=== PATIENT | female | born 1945 | race Caucasian/White ===

== ENCOUNTER → 2018-03-04 10:20 | Outpatient (CLI) | payer OTHER, SELFPAY ==
--- NOTE | 2018-03-04 | BRBX_PTH ---
PATIENT: JLUIS MCCLOUD LOC: [facility] U#:[id number] AGE/SX: 79/F ROOM: RE03/04/[address]: Dr. Jose Pierce MD : 1945 BED: DIS: SPEC #: [id number] RECD: 03/04/18 13:35 STATUS: DA MARGARITA #: [id number] MEG: 03/04/18 00:[address]: Jose Pierce DEPT: SURGICAL PATHOLOGY RECD BY: Teo Braun ENTERED: 03/04/18 13:35 SP TYPE: BREAST BX OTHR DR: Dr. 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 Atypical lobular hyperplasia. Focal microcalcifications. See comment. REVA:clifton 03/05/18 COMMENT The tumor predominantly consists of lobular carcinoma in situ. Focal ductal carcinoma in situ is also noted (<5% of the tumor) nuclear grade 3. Immunohistochemistry ([id number]) supports the above diagnosis. ER/TN/Cfe8hys studies are being performed on sections of tumor and the results from this study will be reported separately ([id number]). Case has been reviewed in consultation with Dr. Daly who concurs with the above diagnosis. IDC:AM MICROSCOPIC DESCRIPTION Slides are reviewed. GROSS DESCRIPTION Received is one container labeled with the patient's name and not further designated. The specimen consists of multiple elongated fragments of galvan-yellow fibroadipose tissue that in aggregate measure 5 x 3 x 0.3 cm. The entire specimen is submitted in two cassettes. / REVA:clifton 03/04/18 TC:0 [facility]: [id number]
--- NOTE | 2018-03-04 | IMM_PTH ---
PATIENT: JLUIS MCCLOUD LOC: [facility] U#:[id number] AGE/SX: 79/F ROOM: RE03/04/[address]: Dr. Jose Pierce MD : 1945 BED: DIS: SPEC #: [id number] RECD: 03/05/18 13:09 STATUS: DA REQ #: [id number] MEG: 03/04/18 00:[address]: Jose Pierce DEPT: IMMUNOHISTOCHEMISTRY RECD BY: Chichi Rodriguez ENTERED: 03/05/18 13:12 SP TYPE: IMMUNO OTHR DR: Dr. Mk Becerril DO Tissues: Right breast, NOS Procedures: CK8 (initial) CALPONIN-1 (add) CK8 (add) E-CAD (add) ER (add) HER2 JASBIR (add) MS (add) P40 (add) PHYSICIAN & INSTITUTION [place] [id number] SPECIMEN INFORMATION: Tissue Source: Right breast, microcalcifications 12 o'clock middle depth Clinical Info: Right breast, microcalcifications 12 o'clock middle depth Specimen Number: [id number] #1 & 2 CPT code: 59541, 60828 x7, 48737 x3 METHODOLOGY: Deparaffinized sections of prefer/formalin-fixed tissue or PAP/DQ stained slides are incubated with monoclonal/polyclonal antibodies/oligonucleotide probes. Localization is made via biotin free immunoperoxidase method. Appropriate controls are performed and reacted as expected. Results on target cell population are indicated in the following table: RESULTS: ANTIBODY / CLONE RESULT Block 1 P40 (BC28) positive Calponin-1 (WO458V) positive CK8 (03tydhM94) positive E-Cad (ECH-6) negative * * focally positive in ductal carcinoma in situ. MORPHOMETRIC ANALYSIS ER (clone 6F11) 0% MS (clone 16/1E2) 0% Her-2Neu (clone CB11) positive (3+) The prognostic test for HER2 is performed on formalin-fixed paraffin embedded tissue. A 3+ (positive) staining pattern is defined as intense, homogeneous, complete, circumferential membranous staining in >10% of contiguous tumor cells. A similar weak (2+) staining pattern is interpreted as equivocal. GURDEEP follow-up testing is recommended for all equivocal cases. Positivity/negativity for ER/MS is reported if > or < 1% of the tumor cells are immuno- reactive, respectively. The ASCO/CAP criteria is used for scoring. Reference: Journal of Clinical Oncology, 2013; 31:0793-1499 & 2010; 16:7451-2980. Duration of fixation: 8 Hrs; Sample Adequate: Yes. These assays have not been validated on decalcified tissues. Results should be interpreted with caution given the likelihood of false negativity on decalcified specimens. Block 2 P40 (BC28) positive Calponin-1 (QF450C) positive CK8 (72bqnwP90) positive E-Cad (ECH-6) negative These tests were developed and their performance characteristics determined by [facility]. They may not have been cleared or approved by the U.S. Food and Drug Administration. The FDA has determined that such clearance or approval is not necessary. INTERPRETATION: Right breast, microcalcifications 12 o'clock middle depth, stereotactic core biopsy: Lobular carcinoma in situ (predominant tumor). Atypical lobular hyperplasia. Focal ductal carcinoma in situ. This case has been reviewed in consultation with Dr. Daly who concurs with the above diagnosis. SJ:clifton 03/06/18
--- NOTE | 2018-03-05 18:53 | OP.PCM_ITS ---
Report of Operation Date of Procedure: 03/04/18 Pre-Operative Diagnosis: right breast microcalcifications Post-Operative Diagnosis: right breast microcalcifications Surgery/Procedure Performed:: right breast stereotactic biopsy with specimen radiograph and gel marker placement clinical molecular geneticist: None Type of Anesthesia:: Local Specimen's removed: right breast tissue Description of Procedure: The patient was brought to the stereotactic suite and informed of the plan course of events. The right breast was positioned in the CC approach on the [place] stereotactic table. Mammographic image demonstrated the area of abnormality to be located in the center of the radiograph. Stereotactic images were then obtained which demonstrated good positioning of the abnormality for biopsy with good stroke iris parameters. The breast was cleaned with Betadine area did one percent lidocaine was used to anesthetize the skin and a small stab incision made. An 8-gauge mammotome needle was placed into the pre-fire position. Stereotactic images demonstrated good positioning around the planned biopsy site. Local anesthetic injected deeply in the breast. The needle was d eployed. Post deployment images demonstrated good positioning of the planned biopsy site. Multiple vacuum-assisted samples were obtained and gdibdr-nzx-qjvab fashion. Specimen radiograph demonstrated micro-calcifications in the sample. A gel marker clip was deployed. Post biopsy images demonstrated good position of the clip relative the biopsy cavity. The breast was removed from compression. Steri-Strips and a dressing applied. Post procedure mammogram images were obtained.
== END ==
PROVIDERS: PCP Student in an Organized Health Care Education/Training Program; Referring Provider Surgery; Visit Provider Surgery
DX: D05.01 Lobular carcinoma in situ of right breast (principal); D05.11 Intraductal carcinoma in situ of right breast; N60.91 Unspecified benign mammary dysplasia of right breast; E78.00 Pure hypercholesterolemia, unspecified; E03.9 Hypothyroidism, unspecified; E55.9 Vitamin D deficiency, unspecified; Z85.3 Personal history of malignant neoplasm of breast; Z79.899 Other long term (current) drug therapy; Z87.891 Personal history of nicotine dependence
CPT/HCPCS: 19081; 88305; 88341; 88342; J7050

== ENCOUNTER → 2018-03-06 12:33 | Outpatient (CLI) | payer OTHER, SELFPAY ==
--- OUTSIDE RECORDS SUMMARY | 2018-05-11 05:06 | XMS RPT_ITS ---
:1945 Author Organization OH[facility] Care Team Providers Name Role Phone MK [facility]SE Referring Unavailable MK HOUSE Attending Unavailable MEI WYNN (PAWN SHOP KEEPER) Referring Unavailable FREDRICK EDWARDS Attending Unavailable MEI WYNN (PAWN SHOP KEEPER) Referring Unavailable JOSE BOB Attending Unavailable SONYA VARGAS (DARWIN) Attending Unavailable JOSE BOB Referring Unavailable Jose Bob Attending Unavailable Jose Bob Referring Unavailable Lev Chan Attending Unavailable Lev Chan Referring Unavailable [facility] Unavailable PROBLEMS PROBLEMS DATE TYPE CONDITION / CODE ATTENDING STATUS SOURCE 02/04/2018 Active Other abnormal and NA Active [facility] inconclusive [place] findings on Repository diagnostic imaging of breast / R92.8(ICD-10) 01/28/2018 Active Unknown / FREDRICK EDWARDS Active [facility] UNK(Unknown) [place] Repository 01/28/2018 Active Encounter for NA Active [facility] screening [place] mammogram for Repository malignant neoplasm of breast / Z12.31(ICD-10) 03/09/2013 Active Vitamin D Active [facility] deficiency, [place] unspecified / Repository E55.9(ICD-10) 01/01/2018 Active Other jail NA Active [facility] (current) drug [place] therapy / Repository Z79.899(ICD-10) PROCEDURES PROCEDURES No Procedure Records FoundRESULTS RESULTS PROGRESS Observed: 03/14/2018 Status: COMPLETED Source: [place] 7:06 PM [facility] REPOSITORY HNO ID: [id number] Author: Sonya Vargas (Pa) Service: (none) Author Type: Physician Glass Smoother Type: Progress Notes Filed: 03/14/2018 7:13 PM Note Text: FOLLOW UP VISIT - POST STEREOTACTIC BIOPSY - POSITIVE BIOPSY - LCIS NAME: Bhakti Mccloud [facility] NO.: [id number] DATE OF SERVICE: 03/13/2018 : 1945 REFERRING PHYSICIAN: [facility], Bhakti is a patient I am following with Dr. Bob for abnormal breast imaging. Dr. Bob performed a right side stereotactic biopsy for her abnormal mammogram on 03/04/18. 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 Atypical lobular hyperplasia. Focal microcalcifications. See comment. SJ:rg 03/05/18 COMMENT The tumor predominantly consists of lobular carcinoma in situ. Focal ductal carcinoma in situ is also noted (<5% of the tumor) nuclear grade 3. SPECIMEN INFORMATION: Tissue Source: Right breast, microcalcifications 12 o?clock middle depth Clinical Info: Right breast, microcalcifications 12 o?clock middle depth Specimen Number: [id number] #1 AND 2 CPT code: 57307, 14125 x7, 98866 x3 METHODOLOGY: Deparaffinized sections of prefer/formalin-fixed tissue or PAP/DQ stained slides are incubated with monoclonal/polyclonal antibodies/oligonucleotide probes. Localization is made via biotin free immunoperoxidase method. Appropriate controls are performed and reacted as expected. Results on target cell population are indicated in the following table: RESULTS: ANTIBODY / CLONE RESULT Block 1 P40 (BC28) positive Calponin-1 (OP454S) positive CK8 (73jcknC02) positive E-Cad (ECH-6) negative * * focally positive in ductal carcinoma in situ. MORPHOMETRIC ANALYSIS ER (clone 6F11) 0% WV (clone 16/1E2) 0% Her-2Neu (clone CB11) positive (3+) The patient notes minimal bruising since the procedure. VITALS: There were no vitals taken for this visit. On examination, the Right breast biopsy site is clean, dry, and intact. There is mild bruising of the site. Assessment IMPRESSION: status post stereotactic biopsy for Right breast LCIS. PLAN: If Bhakti notes any problems, she should contact me immediately. We extensively discussed her diagnosis of lobular carcinoma in situ. She was able to ask questions and those questions were answered. The patient will also follow up next week while Dr. Bob is in office for further discussion of pathology and surgical treatment options. Patient verbalized understanding of all above and agreed with the plan Diagnoses: (D05.01) Lobular carcinoma in situ of right breast (primary encounter diagnosis) I spent 20 minutes in the visit, with more than 50% of the total ixcc-ch-oueb time of the visit in counseling / coordination of care. Sonya Vargas PA-C CNOV Observed: 03/13/2018 Status: COMPLETED Source: [place] 2:00 PM [place] REPOSIT[facility] Office Visit (GENSWS) BHAKTI MCCLOUD ([id number]) 1945 F Date Time Provider Department 03/13/18 2:00 PM SONYA VARGAS (PA) During your visit today, we recorded the following information about you: Sonya Vargas PA-C 03/13/2018 2:18 PM Signed -Follow up with Dr. Bob next week Sonya Vargas PA-C 03/14/2018 7:13 PM Signed FOLLOW UP VISIT - POST STEREOTACTIC BIOPSY - POSITIVE BIOPSY - LCIS NAME: Bhakti Nannette Mccloud [facility] NO.: [id number] DATE OF SERVICE: 03/13/2018 : 1945 REFERRING PHYSICIAN: [facility] DO Bhakti is a patient I am following with Dr. Bob for abnormal breast imaging. Dr. Bob performed a right side stereotactic biopsy for her abnormal mammogram on 03/04/18. 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 Atypical lobular hyperplasia. Focal microcalcifications. See comment. SJ:clifton 03/05/18 COMMENT The tumor predominantly consists of lobular carcinoma in situ. Focal ductal carcinoma in situ is also noted (<5% of the tumor) nuclear grade 3. SPECIMEN INFORMATION: Tissue Source: Right breast, microcalcifications 12 o?clock middle depth Clinical Info: Right breast, microcalcifications 12 o?clock middle depth Specimen Number: [id number] #1 AND 2 CPT code: 59057, 75897 x7, 80731 x3 METHODOLOGY: Deparaffinized sections of prefer/formalin-fixed tissue or PAP/DQ stained slides are incubated with monoclonal/polyclonal antibodies/oligonucleotide probes. Localization is made via biotin free immunoperoxidase method. Appropriate controls are performed and reacted as expected. Results on target cell population are indicated in the following table: RESULTS: ANTIBODY / CLONE RESULT Block 1 P40 (BC28) positive Calponin-1 (ZJ893Z) positive CK8 (42gxyoO30) positive E-Cad (ECH-6) negative * * focally positive in ductal carcinoma in situ. MORPHOMETRIC ANALYSIS ER (clone 6F11) 0% WV (clone 16/1E2) 0% Her-2Neu (clone CB11) positive (3+) The patient notes minimal bruising since the procedure. VITALS: There were no vitals taken for this visit. On examination, the Right breast biopsy site is clean, dry, and intact. There is mild bruising of the site. Assessment IMPRESSION: status post stereotactic biopsy for Right breast LCIS. PLAN: If Bhakti notes any problems, she should contact me immediately. We extensively discussed her diagnosis of lobular carcinoma in situ. She was able to ask questions and those questions were answered. The patient will also follow up next week while Dr. Bob is in office for further discussion of pathology and surgical treatment options. Patient verbalized understanding of all above and agreed with the plan Diagnoses: (D05.01) Lobular carcinoma in situ of right breast (primary encounter diagnosis) I spent 20 minutes in the visit, with more than 50% of the total anqa-qu-bwju time of the visit in counseling / coordination of care. Sonya Vargas PA-C Referring Provider: JOSE BOB [[id number]] Allergies As of Date: 03/13/2018 (No Known Allergies) Date Reviewed: 03/13/2018 Reviewed by: Ca Brown LPN - Fully Assessed Reason for Visit: Post Op [174] Primary Visit Diagnosis:Lobular carcinoma in situ of right breast [D05.01] Prescriptions as of 03/13/2018 Sig: POLYMYXIN B SULFATE 10,000 UN* Use 2 Drops in the right eye * ESTRADIOL 0.01% (0.1 MG/GRAM)* Use small amount at vaginal o* FLUTICASONE 50 MCG/ACTUATION * Use 2 Sprays in each nostril * CETIRIZINE 10 MG TABLET Take 1 tablet by mouth once d* LEVOTHYROXINE 125 MCG TABLET Take 1 tablet by mouth daily * CHOLECALCIFEROL (VITAMIN D3) * Take 1 capsule by mouth once * ACETAMINOPHEN 325 MG TABLET Take 650 mg by mouth every 6 * Problem List As Of Date 03/13/2018 Noted Resolved Hypothyroid [E03.9] INVALID FOR* History of breast cancer [Z85.3] INVALID FOR* Osteopenia [M85.80] INVALID FOR* Allergic rhinitis [J30.9] INVALID FOR* Overweight (BMI 25.0-29.9) [E66.3] INVALID FOR* Hyperlipidemia [E78.5] INVALID FOR* Vitamin D deficiency [E55.9] INVALID FOR* Other instructions from your clinician: -Follow up with Dr. Bob next week Follow-up and Disposition History Recorded Encounter Status:Closed by SONYA VARGAS PA-C on 03/14/18 PROGRESS Observed: 03/08/2018 Status: COMPLETED Source: [place] 9:08 AM [facility]IN [place] REPOSITORY [facility] ID: [id number] Author: Heather (Vinnie) Older Service: (none) Author Type: Nurse Practitioner Type: Progress Notes Filed: 03/08/2018 9:20 AM Note Text: CC: Patient presents with: Eye Problem HPI Bhakti Mccloud is a 72 year old female who presents with complaint of possible conjunctivitis. Eye symptoms include redness, itching, irritation and thick yellow drainage Denies: photophobia, severe foreign body sensation , eye pain, visual changes, severe headache with nausea and foreign body exposure to eye. Risk factors: Known exposure to family member(s) with pink eye. Contact lens: No The remainder of the review of systems is negative. PMH, Medications, labs, allergies, and recent past visits with pcp reviewed. Information collected from clinical staff is reviewed. PHYSICAL EXAM BP 116/74 Pulse 93 Temp 36.9 ?C (98.5 ?F) (Tympanic) Resp 14 Wt 77.5 kg (170 lb 12.8 oz) BMI 26.75 kg/m? General Appearance: well appearing, in no acute distress, alert Eyes: right eye: Conjunctivae: erythematous, Sclera: injected, Eyelids: normal, Corneas: normal, Drainage: clear, watery, EOMI: painless, PERRL ASSESSMENT/PLAN: 1. Acute conjunctivitis of right eye, unspecified acute conjunctivitis type - ICD9: 372.00, ICD10: H10.31 Exposure to pink eye - see medication orders - course and contagiousness issues discussed, including hand washing. - Instructed to call if high fever, development of periorbital redness or swelling, eye pain, visual changes, concerns or if symptoms persist. Prescription instructions reviewed with patient as applicable. Potential red flag symptoms discussed with the patient. Reviewed appropriate action plan to take if red flag symptoms occur. Patient agreeable to treatment plan. Heather Javier APRN.CNP CNOV Observed: 03/08/2018 Status: COMPLETED Source: [place] 9:00 AM [place] REPOSIT[facility] Office Visit (WSTR) BHAKTI MCCLOUD ([id number]) 1945 F Date Time Provider Department 03/08/18 9:00 AM HEATHER JAVIER (VINNIE) [facility] During your visit today, we recorded the following information about you: Temperature Pulse Respiration Blood pressure 98.5 degrees 93/minute 14/minute 116/74 Weight 77.5 kg Heather Javier APRN.CNP 03/08/2018 9:20 AM Signed CC: Patient presents with: Eye Problem HPI Bhaktiananth Mccloud is a 72 year old female who presents with complaint of possible conjunctivitis. Eye symptoms include redness, itching, irritation and thick yellow drainage Denies: photophobia, severe foreign body sensation , eye pain, visual changes, severe headache with nausea and foreign body exposure to eye. Risk factors: Known exposure to family member(s) with pink eye. Contact lens: No The remainder of the review of systems is negative. PMH, Medications, labs, allergies, and recent past visits with pcp reviewed. Information collected from clinical staff is reviewed. PHYSICAL EXAM BP 116/74 Pulse 93 Temp 36.9 ?C (98.5 ?F) (Tympanic) Resp 14 Wt 77.5 kg (170 lb 12.8 oz) BMI 26.75 kg/m? General Appearance: well appearing, in no acute distress, alert Eyes: right eye: Conjunctivae: erythematous, Sclera: injected, Eyelids: normal, Corneas: normal, Drainage: clear, watery, EOMI: painless, PERRL ASSESSMENT/PLAN: 1. Acute conjunctivitis of right eye, unspecified acute conjunctivitis type - ICD9: 372.00, ICD10: H10.31 Exposure to pink eye - see medication orders - course and contagiousness issues discussed, including hand washing. - Instructed to call if high fever, development of periorbital redness or swelling, eye pain, visual changes, concerns or if symptoms persist. Prescription instructions reviewed with patient as applicable. Potential red flag symptoms discussed with the patient. Reviewed appropriate action plan to take if red flag symptoms occur. Patient agreeable to treatment plan. Heather Javier, KAILEY.PAWN SHOP KEEPER Referring Provider: SELF [[id number]] Allergies As of Date: 03/08/2018 (No Known Allergies) Date Reviewed: 03/08/2018 Reviewed by: Petra Gonzalez Ma - Fully Assessed Reason for Visit: Eye Problem [43] Primary Visit Diagnosis:Acute conjunctivitis of right eye, unspecified acute conjunctivitis type [H10.31] Order(s):trimethoprim-polymyxin eye drops (POLYTRIM) ophthalmic solutionUse 2 Drops in the right eye four times daily. Use for one weekDisp: 1 BottleRfl: 0 Prescriptions as of 03/08/2018 Sig: POLYMYXIN B SULFATE 10,000 UN* Use 2 Drops in the right eye * ESTRADIOL 0.01% (0.1 MG/GRAM)* Use small amount at vaginal o* FLUTICASONE 50 MCG/ACTUATION * Use 2 Sprays in each nostril * CETIRIZINE 10 MG TABLET Take 1 tablet by mouth once d* LEVOTHYROXINE 125 MCG TABLET Take 1 tablet by mouth daily * CHOLECALCIFEROL (VITAMIN D3) * Take 1 capsule by mouth once * ACETAMINOPHEN 325 MG TABLET Take 650 mg by mouth every 6 * Problem List As Of Date 03/08/2018 Noted Resolved Hypothyroid [E03.9] INVALID FOR* History of breast cancer [Z85.3] INVALID FOR* Osteopenia [M85.80] INVALID FOR* Allergic rhinitis [J30.9] INVALID FOR* Overweight (BMI 25.0-29.9) [E66.3] INVALID FOR* Hyperlipidemia [E78.5] INVALID FOR* Vitamin D deficiency [E55.9] INVALID FOR* Prescriptions ordered this encounter Disp Refills Start End POLYMYXIN B SULFATE 10,000 UNIT-TRIM* 1 Adolfo* 0 03/08/2018 Route: RIGHT EYE Sig: Use 2 Drops in the right eye four times daily. Use for one week Encounter Status:Closed by HEATHER JAVIER CNP on 03/08/18 Observed: 03/06/2018 Status: F Source: [place] CULTURE, THROAT 9:30 AM [facility] REPOSITORY Culture, Throat Normal throat sonia isolated. No beta-hemolytic streptococcus isolated. Performed By: #### M100.1000 #### [facility] [place], [address] PROGRESS Observed: 03/05/2018 Status: COMPLETED Source: [place] 7:11 PM [facility] RE[facility]IT[facility] HNO ID: [id number] Author: Jose Bob Service: (none) Author Type: Physician Type: Progress Notes Filed: 03/05/2018 7:14 PM Note Text: OPERATIVE NOTATION FOR [facility] SURGICAL PROCEDURE. March 04, 2018 Bhakti Brunson Rigoberto 1945 [id number] female PROCEDURE: right VACCUUM NEEDLE STEREOTACTIC BREAST BIOPSY WITH SPECIMEN RADIOGRAPH - 05841 SURGEON: Priya Bob M.D. FACS BLUE SPLIT TRIMMER: None DEPT: WQ PROVIDER: [id number] Bob MD POS: [id number] DIAGNOSIS: (D05.01) Neoplasm of right breast, primary tumor staging category Tis: lobular carcinoma in situ (LCIS) (primary encounter diagnosis) ASA CLASS: 2 - mild FINDINGS: COMPLICATIONS: None PMHx - PAST MEDICAL HISTORY Diagnosis Date - Breast cancer (HCC) 03/2006 Lobular type stage 2, left, partial mastectomy and radiation and Arimedex - Diverticulosis - Hypercholesteremia - Hypothyroidism - Osteopenia 02/2010 DEXA 2010 [place], DEXA 02/2013 - Vitamin D deficiency 02/2013 COMORBIDITIES - None Post Op Occurrences - None Wound Classification - Clean Operative note dictated in the [facility] dictation system. Jose Bob MD OPERATIVE REPORT Observed: 03/05/2018 Status: F Source: [place] 6:53 PM [facility] REPOSITORY [facility] Medical Records Department [address] [place] [address] Operative Report 03/05/18 1851 MR#: [id number] Acct: [id number] Name: BHAKTI MCCLOUD Rep #: [id number] : 1945 72 From: Jose Bob MD PCP: Mk Abbott DO Status: REG CLI Y Location: [facility] Report of Operation Date of Procedure: 03/04/18 Pre-Operative Diagnosis: right breast microcalcifications Post-Operative Diagnosis: right breast microcalcifications Surgery/Procedure Performed:: right breast stereotactic biopsy with specimen radiograph and gel marker placement vascular nurse: None Type of Anesthesia:: Local Specimen's removed: right breast tissue Description of Procedure: The patient was brought to the stereotactic suite and informed of the plan course of events. The right breast was positioned in the CC approach on the [place] stereotactic table. Mammographic image demonstrated the area of abnormality to be located in the center of the radiograph. Stereotactic images were then obtained which demonstrated good positioning of the abnormality for biopsy with good stroke iris parameters. The breast was cleaned with Betadine area did one percent lidocaine was used to anesthetize the skin and a small stab incision made. An 8-gauge mammotome needle was placed into the pre-fire position. Stereotactic images demonstrated good positioning around the planned biopsy site. Local anesthetic injected deeply in the breast. The needle was deployed. Post deployment images demonstrated good positioning of the planned biopsy site. Multiple vacuum-assisted samples were obtained and uehzgw-ehc-ouafz fashion. Specimen radiograph demonstrated micro-calcifications in the sample. A gel marker clip was deployed. Post biopsy images demonstrated good position of the clip relative the biopsy cavity. The breast was removed from compression. Steri-Strips and a dressing applied. Post procedure mammogram images were obtained. 03/05/18 1853 <Electronically signed by Jose Bob MD> Date Jose Bob MD CC: Mk Abbott DO; Jose Bob MD Signed CNPN Observed: 03/05/2018 Status: COMPLETED Source: [place] 12:00 AM [place] REPOSIT[facility] Telephone (GENSWS) BHAKTI MCCLOUD ([id number]) 1945 F Date Time Provider Department 03/05/18 JOSE BOB During your visit today, we recorded the following information about you: Jose Bob MD 03/05/2018 6:21 PM Signed Called and discussed results of patient's stereotactic biopsy which returned as mostly lobular carcinoma in situ with a smaller area of ductal carcinoma in situ. The patient will follow up with my physician's administrative assistant front desk this week for a wound check. I've asked her to make an appointment to follow-up with me the week I return the week of March 17. I've discussed with her that we will most likely be discussing and needing to perform a lumpectomy but I'm optimistic given the biopsy volume and post biopsy mammography that there is low risk for upstaging and that only lumpectomy on the be performed. Ca Brown LPN 03/06/2018 7:54 AM Signed Please contact patient for wound check with Sonya this week. Allergies As of Date: 03/05/2018 (No Known Allergies) Date Reviewed: 02/28/2018 Reviewed by: Jose Bob - Fully Assessed Reason for Visit: Results [95] Prescriptions as of 03/05/2018 Sig: ESTRADIOL 0.01% (0.1 MG/GRAM)* Use small amount at vaginal o* FLUTICASONE 50 MCG/ACTUATION * Use 2 Sprays in each nostril * CETIRIZINE 10 MG TABLET Take 1 tablet by mouth once d* LEVOTHYROXINE 125 MCG TABLET Take 1 tablet by mouth daily * CHOLECALCIFEROL (VITAMIN D3) * Take 1 capsule by mouth once * ACETAMINOPHEN 325 MG TABLET Take 650 mg by mouth every 6 * Problem List As Of Date 03/05/2018 Noted Resolved Hypothyroid [E03.9] INVALID FOR* History of breast cancer [Z85.3] INVALID FOR* Osteopenia [M85.80] INVALID FOR* Allergic rhinitis [J30.9] INVALID FOR* Overweight (BMI 25.0-29.9) [E66.3] INVALID FOR* Hyperlipidemia [E78.5] INVALID FOR* Vitamin D deficiency [E55.9] INVALID FOR* Encounter Status:Closed by JOSE BOB MD on 03/05/18 CNOP Observed: 03/04/2018 Status: COMPLETED Source: [place] 12:00 AM [place] REPOSIT[facility] Operative Note (Enc) (GENSWS) Progress Notes: Jose Bob MD 03/05/2018 7:14 PM Signed OPERATIVE NOTATION FOR [facility] SURGICAL PROCEDURE. March 04, 2018 Bhakti Mccloud 1945 [id number] female PROCEDURE: right VACCUUM NEEDLE STEREOTACTIC BREAST BIOPSY WITH SPECIMEN RADIOGRAPH - 88922 SURGEON: Priya Bob M.D. FACS BLUE SPLIT TRIMMER: None DEPT: WQ PROVIDER: [id number] Bob MD POS: [id number] DIAGNOSIS: (D05.01) Neoplasm of right breast, primary tumor staging category Tis: lobular carcinoma in situ (LCIS) (primary encounter diagnosis) ASA CLASS: 2 - mild FINDINGS: COMPLICATIONS: None PMHx - PAST MEDICAL HISTORY Diagnosis Date - Breast cancer (HCC) 03/2006 Lobular type stage 2, left, partial mastectomy and radiation and Arimedex - Diverticulosis - Hypercholesteremia - Hypothyroidism - Osteopenia 02/2010 DEXA 2010 [place] DEXA 02/2013 - Vitamin D deficiency 02/2013 COMORBIDITIES - None Post Op Occurrences - None Wound Classification - Clean Operative note dictated in the [facility] dictation system. Jose Bob MD Encounter Status:Closed by JOSE BOB MD on 03/05/18 BREAST BIOPSY Observed: 03/04/2018 Status: F Source: [place] ([place]OO[place]) 12:00 AM [facility] REPOSITORY Patient: BHAKTI MCCLOUD : 1945 (72/F) Acct Num: [id number] Phys: Jose Bob MD Unit Num: [id number] Loc: [facility] Specimen: [id number] Received: 03/04/18 - 1335 Spec Type: BREAST BX TISSUES 1 TISSUES: Right breast, NOS COMMENT The tumor predominantly consists of lobular carcinoma in situ. Focal ductal carcinoma in situ is also noted (<5% of the tumor) nuclear grade 3. Immunohistochemistry (RF19-68) supports the above diagnosis. ER/WV/Jds7bmx studies are being performed on sections of tumor and the results from this study will be reported separately ([id number]). Case has been reviewed in consultation with Dr. Daly who concurs with the above diagnosis. IDC:AM GROSS DESCRIPTION Received is one container labeled with the patient's name and not further designated. The specimen consists of multiple elongated fragments of galvan-yellow fibroadipose tissue that in aggregate measure 5 x 3 x 0.3 cm. The entire specimen is submitted in two cassettes. / REVA:clifton 03/04/18 TC:0 CPT: 11409 HEADER OPERATION: Right breast stereotactic biopsy PRE-OP DIAGNOSIS: Microcalcifications right breast 12 o'clock middle depth TISSUE SUBMITTED: Right breast core tissue ISCHEMIC TIME: 1 minute FIXATION TIME: 8 hours MICROSCOPIC DESCRIPTION Slides are reviewed. 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 Atypical lobular hyperplasia. Focal microcalcifications. See comment. REVA:clifton 03/05/18 Signed Sherman Douglas MD 03/05/18 <signature on file> Performed By: #### PBRBX #### [facility] [address], [address] IMMUNOHISTOCHEMISTRY Observed: 03/04/2018 Status: F Source: [place] 12:00 AM [facility] REPOSITORY Patient: BHAKTI MCCLOUD : 1945 (72/F) Acct Num: [id number] Phys: Jose Bob MD Unit Num: [id number] Loc: [facility] Specimen: [id number] Received: 03/05/18 - 1309 Spec Type: IMMUNO TISSUES 1 TISSUES: Right breast, NOS - 1 AND 2 SPECIMEN INFORMATION: Tissue Source: Right breast, microcalcifications 12 o'clock middle depth Clinical Info: Right breast, microcalcifications 12 o'clock middle depth Specimen Number: [id number] #1 AND 2 CPT code: 10229, 61033 x7, 66556 x3 METHODOLOGY: Deparaffinized sections of prefer/formalin-fixed tissue or PAP/DQ stained slides are incubated with monoclonal/polyclonal antibodies/oligonucleotide probes. Localization is made via biotin free immunoperoxidase method. Appropriate controls are performed and reacted as expected. Results on target cell population are indicated in the following table: RESULTS: ANTIBODY / CLONE RESULT Block 1 P40 (BC28) positive Calponin-1 (KC281K) positive CK8 (44gsapI97) positive E-Cad (ECH-6) negative * * focally positive in ductal carcinoma in situ. MORPHOMETRIC ANALYSIS ER (clone 6F11) 0% WV (clone 16/1E2) 0% Her-2Neu (clone CB11) positive (3+) The prognostic test for HER2 is performed on formalin-fixed paraffin embedded tissue. A 3+ (positive) staining pattern is defined as intense, homogeneous, complete, circumferential membranous staining in >10% of contiguous tumor cells. A similar weak (2+) staining pattern is interpreted as equivocal. GURDEEP follow- up testing is recommended for all equivocal cases. Positivity/negativity for ER/ WV is reported if > or < 1% of the tumor cells are immuno- reactive, respectively. The ASCO/CAP criteria is used for scoring. Reference: Journal of Clinical Oncology, 2013; 31:2409-1452 AND 2010; 16:2784- 2795. Duration of fixation : 8 Hrs; Sample Adequate: Yes. These assays have not been validated on decalcified tissues. Results should be interpreted with caution given the likelihood of false negativity on decalcified specimens. Block 2 P40 (BC28) positive Calponin-1 (VX567T) positive CK8 (16qxcfY05) positive E-Cad (ECH-6) negative These tests were developed and their performance characteristics determined by [facility]. They may not have been cleared or approved by the U.S. Food and Drug Administration. The FDA has determined that such clearance or approval is not necessary. INTERPRETATION: Right breast, microcalcifications 12 o'clock middle depth, stereotactic core biopsy: Lobular carcinoma in situ (predominant tumor). Atypical lobular hyperplasia. Focal ductal carcinoma in situ. This case has been reviewed in consultation with Dr. Daly who concurs with the above diagnosis. SJ:clifton 03/06/18 PHYSICIAN AND INSTITUTION [place] [id number] Signed Amilcar Daly DO 03/07/18 <signature on file> Performed By: #### PIMM #### [facility] [address] [place] [address]. [place], [address] PROGRESS Observed: 02/25/2018 Status: COMPLETED Source: [place] 7:36 PM [facility] [place] REPOSIT[facility] O ID: [id number] Author: Jose Bob Service: (none) Author Type: Physician Type: Progress Notes Filed: 02/28/2018 3:51 PM Note Text: HISTORY AND PHYSICAL - BREAST COMPLAINT Bhakti Mccloud 1945 REFERRING PHYSICIAN: Self CHIEF COMPLAINT: Microcalcifications mid right breast HPI: The patient is a 72 year old female with a complaint of an abnormal mammogram. The patient had a mammogram with ultrasound on January 28 and February 04 which demonstrated: IMPRESSION: SUSPICIOUS FINDING - BIOPSY SHOULD BE CONSIDERED The grouped pleomorphic calcifications in the right breast are suspicious of malignancy. ?A stereotactic biopsy is recommended. He seems to be in the 12 to 1:00 position of the right breast. The patient notes a history of left lobular carcinoma and a benign right breast mass. The patient was living overseas in [facility] when she was diagnosed with a left breast mass in 2005. She underwent a left lumpectomy with axillary dissection followed by radiation therapy. She was on Aramidex for 5 years. She also underwent a right excisional breast biopsy in the upper inner right breast at that same time for a benign abnormality. She does not perform a self breast exam routinely. She notes no skin changes. She denies nipple discharge. She notes no axillary masses. She notes no family history of breast problems. She notes no significant breast trauma or breast difficulties in the past. The patient has had 1 pregnancies. Her last mammogram was January,. Her last menstrual period was age 54. Her first menstrual period was at age 13. The patient is being seen by me today at the request of Dr. Edwards for my opinion and advice regarding right breast microcalcifications. PAST MEDICAL HISTORY Diagnosis Date - Breast cancer (HCC) 03/2006 Lobular type stage 2, left, partial mastectomy and radiation and Arimedex - Diverticulosis - Hypercholesteremia - Hypothyroidism - Osteopenia 02/2010 DEXA 2010 [place], DEXA 02/2013 - Vitamin D deficiency 02/2013 PAST SURGICAL HISTORY Procedure Laterality Date - COLONOSCOP W/ OR W/O [facility] SPEC 11/29/2016 Colonoscopy - COLONOSCOPY 2008 diverticulosis, no polyps, - PAST SURGICAL HISTORY OF 2005 Left Lumpectomy, patient states she [place]ail [place]aste[place] TOTAL ABDOM HYSTERECTOMY Hysterectomy, [facility] Current Outpatient Prescriptions: estradiol (ESTRACE) 0.01 % (0.1 mg/gram) vaginal cream Use small amount at vaginal opening 2 nights per week Disp: 1 Tube Rfl: 2 fluticasone (FLONASE) 50 mcg/actuation nasal spray Use 2 Sprays in each nostril once daily. Rinse mouth after use. Disp: 3 Bottle Rfl: 3 cetirizine (ZYRTEC) 10 mg tablet Take 1 tablet by mouth once daily. Disp: 90 tablet Rfl: 3 levothyroxine (LEVOXYL) 125 mcg tablet Take 1 tablet by mouth daily before breakfast. Disp: 90 tablet Rfl: 3 cholecalciferol, Vitamin D3, (VITAMIN D3) 50,000 unit cap capsule Take 1 capsule by mouth once each week. Disp: 4 capsule Rfl: 11 acetaminophen (TYLENOL) 325 mg tablet Take 650 mg by mouth every 6 hours as needed. Disp: Rfl: No current facility-administered medications for this visit. ALLERGIES: Patient has no known allergies. 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 Eyes: The patient denies glaucoma, denies eye injury/surgery, wears glasses or contacts. Ear/Nose/Throat: The patient notes allergies, denies hayfever, denies ear infections, and denies bloody noses. Cardiovascular: The patient denies chest pain, denies heart disease, denies high blood pressure,denies cardiac stent, denies prior heart attack, denies irregular heart beat, denies high cholesterol, denies poor circulation, denies heart failure, other cardiac issues, denies claudication, denies cold feet, denies peripheral arterial stent. Respiratory: The patient denies tuberculosis, denies pneumonia, denies frequent cough, denies pulmonary embolism, denies shortness of breath, and denies coughing up blood. Gastrointestinal: The patient denies difficulty swallowing, denies acid reflux, denies ulcers, denies vomiting, denies jaundice/hepatitis, denies gallbladder problems, denies black or tarry stools, denies hemorrhoids, denies bleeding from rectum, denies diverticulitis, denies constipation, denies diarrhea, denies loss of stool control, and denies hernias. Kidney/Bladder: The patient denies kidney stones, denies urine infections, and denies bloody urine. Skin: The patient denies a history of skin cancer, denies bleeding/changing moles, and denies a history of skin rash. Neurologic: The patient denies a history of epilepsy/convulsions, denies headaches, denies head/spinal injuries, and denies stroke/TIA. Psychiatric: The patient denies psychiatric medications, denies depression, and denies voices, denies substance abuse. Endocrine: The patient notes thyroid disorders, denies diabetes, and denies hormonal problems. Hematologic: The patient denies a history of bruising, denies bleeding, and denies anemia, denies blood clots. Infections: The patient notes a history of measles and mumps, denies rheumatic fever, and denies sexually transmitted diseases. Musculoskeletal: The patient denies back pain/injury, denies back problems, denies sciatica, denies knee/foot trouble, denies arthritis, or denies gout. ? ? When was patient's last Mammogram screening? 01/2018 ? Last Colonoscopy: 11/2016 ? PHYSICAL EXAMINATION: General: The patient is 72 year old female, well nourished, well hydrated in no acute distress. The patient is oriented to time, place, and person. VITALS: Blood pressure 106/62, pulse 119, temperature 36.6 ?C (97.8 ?F), temperature source Temporal Artery, height 170.2 cm (5' 7), weight 78.2 kg (172 lb 6.4 oz), SpO2 100 %. Body mass index is 27 kg/m?. HEENT: Normal cephalic, ataumatic, pupils are equally round, sclera are anicteric, mucous membranes are moist, oropharynx is clear. Neck has no masses, asymmetry or lymphadenopathy. Thyroid is unremarkable. Respiratory: Clear to auscultation and percussion. Normal respiratory excursion and pattern. Cardiac: Examination is regular rate and rhythm. Abdominal exam: Soft, nontender, with no palpable masses. No hepatosplenomegaly. No palpable hernias. Rectal exam: exam deferred Extremities: no clubbing, cyanosis or edema. No adenopathy. Breast: Visual inspection reveals no retractions, nipple inversion, or skin changes. The patient has well-healed incisions in the right breast in the upper inner aspect and a longer incision in the left breast. Along with a left axillary incision all are well healed Palpation of the right breast reveals no dominant or suspicious masses. Palpation of the left breast reveals no dominant or suspicious masses and an area of decreased density consistent with a larger lumpectomy in the left upper breast. Axillary exam demonstrates no suspicious masses in either the left or right axilla, with the left axilla being consistent with a post axillary dissection. There is no nipple discharge expressed from either the left or right breast. LABORATORY VALUES: As Noted RADIOLOGIC STUDIES: As Noted Assessment IMPRESSION: Right breast microcalcifications PLAN: I plan to perform a stereotactic biopsy of the right breast. The planned surgical procedure was discussed extensively with the patient. The risks, benefits, anticipated outcomes and possible complications were mentioned. My staff has also explained the procedure in understandable terms and the patient was given the option to take printed material concerning the planned procedure. The patient had the opportunity to ask questions concerning the planned procedure. The patient freely consents to the planned procedure. Diagnoses: (R92.8) Abnormal finding on breast imaging (primary encounter diagnosis) My findings have been communicated to Dr. Edwards via shared medical record. This note will be forwarded to Dr. Mk House DO. Return to Clinic: The patient is instructed to follow-up with me after the testing has been completed. Jose Bob MD CNOV Observed: 02/25/2018 Status: COMPLETED Source: [place] 2:00 PM [place] [facility] Office Visit ([facility]) BHAKTI MCCLOUD ([id number]) 1945 F Date Time Provider Department 02/25/18 2:00 PM JOSE BOB During your visit today, we recorded the following information about you: Temperature Pulse Blood pressure Weight 97.8 degrees 119/minute 106/62 78.2 kg Height 1.702 m Jose Bob MD 02/28/2018 3:51 PM Addendum HISTORY AND PHYSICAL - BREAST COMPLAINT Bhakti Mccloud 1945 REFERRING PHYSICIAN: Self CHIEF COMPLAINT: Microcalcifications mid right breast HPI: The patient is a 72 year old female with a complaint of an abnormal mammogram. The patient had a mammogram with ultrasound on January 28 and February 04 which demonstrated: IMPRESSION: SUSPICIOUS FINDING - BIOPSY SHOULD BE CONSIDERED The grouped pleomorphic calcifications in the right breast are suspicious of malignancy. ?A stereotactic biopsy is recommended. He seems to be in the 12 to 1:00 position of the right breast. The patient notes a history of left lobular carcinoma and a benign right breast mass. The patient was living overseas in [facility] when she was diagnosed with a left breast mass in 2005. She underwent a left lumpectomy with axillary dissection followed by radiation therapy. She was on Aramidex for 5 years. She also underwent a right excisional breast biopsy in the upper inner right breast at that same time for a benign abnormality. She does not perform a self breast exam routinely. She notes no skin changes. She denies nipple discharge. She notes no axillary masses. She notes no family history of breast problems. She notes no significant breast trauma or breast difficulties in the past. The patient has had 1 pregnancies. Her last mammogram was January,. Her last menstrual period was age 54. Her first menstrual period was at age 13. The patient is being seen by me today at the request of Dr. Edwards for my opinion and advice regarding right breast microcalcifications. PAST MEDICAL HISTORY Diagnosis Date - Breast cancer (HCC) 03/2006 Lobular type stage 2, left, partial mastectomy and radiation and Arimedex - Diverticulosis - Hypercholesteremia - Hypothyroidism - Osteopenia 02/2010 DEXA 2010 [place], DEXA 02/2013 - Vitamin D deficiency 02/2013 PAST SURGICAL HISTORY Procedure Laterality Date - COLONOSCOP W/ OR W/O [facility] SPEC 11/29/2016 Colonoscopy - COLONOSCOPY 2008 diverticulosis, no polyps, - PAST SURGICAL HISTORY OF 2005 Left Lumpectomy, patient states she [place] TOTAL ABDOM HYSTERECTOMY Hysterectomy, [facility] Current Outpatient Prescriptions: estradiol (ESTRACE) 0.01 % (0.1 mg/gram) vaginal cream Use small amount at vaginal opening 2 nights per week Disp: 1 Tube Rfl: 2 fluticasone (FLONASE) 50 mcg/actuation nasal spray Use 2 Sprays in each nostril once daily. Rinse mouth after use. Disp: 3 Bottle Rfl: 3 cetirizine (ZYRTEC) 10 mg tablet Take 1 tablet by mouth once daily. Disp: 90 tablet Rfl: 3 levothyroxine (LEVOXYL) 125 mcg tablet Take 1 tablet by mouth daily before breakfast. Disp: 90 tablet Rfl: 3 cholecalciferol, Vitamin D3, (VITAMIN D3) 50,000 unit cap capsule Take 1 capsule by mouth once each week. Disp: 4 capsule Rfl: 11 acetaminophen (TYLENOL) 325 mg tablet Take 650 mg by mouth every 6 hours as needed. Disp: Rfl: No current facility-administered medications for this visit. ALLERGIES: Patient has no known allergies. 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 Eyes: The patient denies glaucoma, denies eye injury/surgery, wears glasses or contacts. Ear/Nose/Throat: The patient notes allergies, denies hayfever, denies ear infections, and denies bloody noses. Cardiovascular: The patient denies chest pain, denies heart disease, denies high blood pressure,denies cardiac stent, denies prior heart attack, denies irregular heart beat, denies high cholesterol, denies poor circulation, denies heart failure, other cardiac issues, denies claudication, denies cold feet, denies peripheral arterial stent. Respiratory: The patient denies tuberculosis, denies pneumonia, denies frequent cough, denies pulmonary embolism, denies shortness of breath, and denies coughing up blood. Gastrointestinal: The patient denies difficulty swallowing, denies acid reflux, denies ulcers, denies vomiting, denies jaundice/hepatitis, denies gallbladder problems, denies black or tarry stools, denies hemorrhoids, denies bleeding from rectum, denies diverticulitis, denies constipation, denies diarrhea, denies loss of stool control, and denies hernias. Kidney/Bladder: The patient denies kidney stones, denies urine infections, and denies bloody urine. Skin: The patient denies a history of skin cancer, denies bleeding/changing moles, and denies a history of skin rash. Neurologic: The patient denies a history of epilepsy/convulsions, denies headaches, denies head/spinal injuries, and denies stroke/TIA. Psychiatric: The patient denies psychiatric medications, denies depression, and denies voices, denies substance abuse. Endocrine: The patient notes thyroid disorders, denies diabetes, and denies hormonal problems. Hematologic: The patient denies a history of bruising, denies bleeding, and denies anemia, denies blood clots. Infections: The patient notes a history of measles and mumps, denies rheumatic fever, and denies sexually transmitted diseases. Musculoskeletal: The patient denies back pain/injury, denies back problems, denies sciatica, denies knee/foot trouble, denies arthritis, or denies gout. ? ? When was patient's last Mammogram screening? 01/2018 ? Last Colonoscopy: 11/2016 ? PHYSICAL EXAMINATION: General: The patient is 72 year old female, well nourished, well hydrated in no acute distress. The patient is oriented to time, place, and person. VITALS: Blood pressure 106/62, pulse 119, temperature 36.6 ?C (97.8 ?F), temperature source Temporal Artery, height 170.2 cm (5' 7), weight 78.2 kg (172 lb 6.4 oz), SpO2 100 %. Body mass index is 27 kg/m?. HEENT: Normal cephalic, ataumatic, pupils are equally round, sclera are anicteric, mucous membranes are moist, oropharynx is clear. Neck has no masses, asymmetry or lymphadenopathy. Thyroid is unremarkable. Respiratory: Clear to auscultation and percussion. Normal respiratory excursion and pattern. Cardiac: Examination is regular rate and rhythm. Abdominal exam: Soft, nontender, with no palpable masses. No hepatosplenomegaly. No palpable hernias. Rectal exam: exam deferred Extremities: no clubbing, cyanosis or edema. No adenopathy. Breast: Visual inspection reveals no retractions, nipple inversion, or skin changes. The patient has well-healed incisions in the right breast in the upper inner aspect and a longer incision in the left breast. Along with a left axillary incision all are well healed Palpation of the right breast reveals no dominant or suspicious masses. Palpation of the left breast reveals no dominant or suspicious masses and an area of decreased density consistent with a larger lumpectomy in the left upper breast. Axillary exam demonstrates no suspicious masses in either the left or right axilla, with the left axilla being consistent with a post axillary dissection. There is no nipple discharge expressed from either the left or right breast. LABORATORY VALUES: As Noted RADIOLOGIC STUDIES: As Noted Assessment IMPRESSION: Right breast microcalcifications PLAN: I plan to perform a stereotactic biopsy of the right breast. The planned surgical procedure was discussed extensively with the patient. The risks, benefits, anticipated outcomes and possible complications were mentioned. My staff has also explained the procedure in understandable terms and the patient was given the option to take printed material concerning the planned procedure. The patient had the opportunity to ask questions concerning the planned procedure. The patient freely consents to the planned procedure. Diagnoses: (R92.8) Abnormal finding on breast imaging (primary encounter diagnosis) My findings have been communicated to Dr. Edwards via shared medical record. This note will be forwarded to Dr. Mk House DO. Return to Clinic: The patient is instructed to follow-up with me after the testing has been completed. MD Mei Badillo RN 02/28/2018 8:52 AM Signed REVIEW OF SYSTEMS: General: The patient denies fatigue, denies weight loss, notes weight gain, denies feeling hot, and denies feelings of cold. Eyes: The patient denies glaucoma, denies eye injury/surgery, wears glasses or contacts. Ear/Nose/Throat: The patient notes allergies, denies hayfever, denies ear infections, and denies bloody noses. Cardiovascular: The patient denies chest pain, denies heart disease, denies high blood pressure,denies cardiac stent, denies prior heart attack, denies irregular heart beat, denies high cholesterol, denies poor circulation, denies heart failure, other cardiac issues, denies claudication, denies cold feet, denies peripheral arterial stent. Respiratory: The patient denies tuberculosis, denies pneumonia, denies frequent cough, denies pulmonary embolism, denies shortness of breath, and denies coughing up blood. Gastrointestinal: The patient denies difficulty swallowing, denies acid reflux, denies ulcers, denies vomiting, denies jaundice/hepatitis, denies gallbladder problems, denies black or tarry stools, denies hemorrhoids, denies bleeding from rectum, denies diverticulitis, denies constipation, denies diarrhea, denies loss of stool control, and denies hernias. Kidney/Bladder: The patient denies kidney stones, denies urine infections, and denies bloody urine. Skin: The patient denies a history of skin cancer, denies bleeding/changing moles, and denies a history of skin rash. Neurologic: The patient denies a history of epilepsy/convulsions, denies headaches, denies head/spinal injuries, and denies stroke/TIA. Psychiatric: The patient denies psychiatric medications, denies depression, and denies voices, denies substance abuse. Endocrine: The patient notes thyroid disorders, denies diabetes, and denies hormonal problems. Hematologic: The patient denies a history of bruising, denies bleeding, and denies anemia, denies blood clots. Infections: The patient notes a history of measles and mumps, denies rheumatic fever, and denies sexually transmitted diseases. Musculoskeletal: The patient denies back pain/injury, denies back problems, denies sciatica, denies knee/foot trouble, denies arthritis, or denies gout. When was patient's last Mammogram screening? 01/2018 Last Colonoscopy: 11/2016 Mei Cardona RN Referring Provider: SELF [[id number]] Allergies As of Date: 02/25/2018 (No Known Allergies) Date Reviewed: 02/25/2018 Reviewed by: Bryant Rhodes LPN - Fully Assessed Reason for Visit: Consult [[id number]] Cmt: Consult Rt breast Calcification Primary Visit Diagnosis:Abnormal finding on breast imaging [R92.8] Prescriptions as of 02/25/2018 Sig: ESTRADIOL 0.01% (0.1 MG/GRAM)* Use small amount at vaginal o* FLUTICASONE 50 MCG/ACTUATION * Use 2 Sprays in each nostril * CETIRIZINE 10 MG TABLET Take 1 tablet by mouth once d* LEVOTHYROXINE 125 MCG TABLET Take 1 tablet by mouth daily * CHOLECALCIFEROL (VITAMIN D3) * Take 1 capsule by mouth once * ACETAMINOPHEN 325 MG TABLET Take 650 mg by mouth every 6 * Problem List As Of Date 02/25/2018 Noted Resolved Hypothyroid [E03.9] INVALID FOR* History of breast cancer [Z85.3] INVALID FOR* Osteopenia [M85.80] INVALID FOR* Allergic rhinitis [J30.9] INVALID FOR* Overweight (BMI 25.0-29.9) [E66.3] INVALID FOR* Hyperlipidemia [E78.5] INVALID FOR* Vitamin D deficiency [E55.9] INVALID FOR* Visit Notes: >> Mei Cardona RN SatFeb 28, 2018 8:49 AM Status: Signed REVIEW OF SYSTEMS: General: The patient denies fatigue, denies weight loss, notes weight gain, denies feeling hot, and denies feelings of cold. Eyes: The patient denies glaucoma, denies eye injury/surgery, wears glasses or contacts. Ear/Nose/Throat: The patient notes allergies, denies hayfever, denies ear infections, and denies bloody noses. Cardiovascular: The patient denies chest pain, denies heart disease, denies high blood pressure,denies cardiac stent, denies prior heart attack, denies irregular heart beat, denies high cholesterol, denies poor circulation, denies heart failure, other cardiac issues, denies claudication, denies cold feet, denies peripheral arterial stent. Respiratory: The patient denies tuberculosis, denies pneumonia, denies frequent cough, denies pulmonary embolism, denies shortness of breath, and denies coughing up blood. Gastrointestinal: The patient denies difficulty swallowing, denies acid reflux, denies ulcers, denies vomiting, denies jaundice/hepatitis, denies gallbladder problems, denies black or tarry stools, denies hemorrhoids, denies bleeding from rectum, denies diverticulitis, denies constipation, denies diarrhea, denies loss of stool control, and denies hernias. Kidney/Bladder: The patient denies kidney stones, denies urine infections, and denies bloody urine. Skin: The patient denies a history of skin cancer, denies bleeding/changing moles, and denies a history of skin rash. Neurologic: The patient denies a history of epilepsy/convulsions, denies headaches, denies head/spinal injuries, and denies stroke/TIA. Psychiatric: The patient denies psychiatric medications, denies depression, and denies voices, denies substance abuse. Endocrine: The patient notes thyroid disorders, denies diabetes, and denies hormonal problems. Hematologic: The patient denies a history of bruising, denies bleeding, and denies anemia, denies blood clots. Infections: The patient notes a history of measles and mumps, denies rheumatic fever, and denies sexually transmitted diseases. Musculoskeletal: The patient denies back pain/injury, denies back problems, denies sciatica, denies knee/foot trouble, denies arthritis, or denies gout. When was patient's last Mammogram screening? 01/2018 Last Colonoscopy: 11/2016 Mei Cardona RN Follow-up and Disposition History Recorded Encounter Status:Closed by JOSE BOB MD on 02/25/18 CNCO Observed: 02/04/2018 Status: COMPLETED Source: [place] 11:41 AM [facility] HNO ID: [id number] Author: Mammography Coordinator Service: (none) Author Type: Physician Type: Letter Filed: 02/05/2018 11:31 PM Note Text: February 04, 2018 PID: [id number] Bhakti Mccloud [address] [place] [id number] Dear Ms. Mccloud, Your recent breast imaging exam on 02/04/2018 showed an abnormal area. At this time we recommend further evaluation. This does not necessarily mean that there is a serious problem in your breast, but it should not be ignored. Your mammogram demonstrates that you have dense breast tissue, which could hide abnormalities. Dense breast tissue, in and of itself, is a relatively common condition. Therefore, this information is not provided to cause undue concern; rather, it is to raise your awareness and promote discussion with your health care provider regarding the presence of dense breast tissue in addition to other risk factors. Please contact your physician as soon as possible to discuss the results of this exam and decide what the next steps in your medical care should be. If you have already been notified of these findings, please disregard this letter. Thank you for allowing us to help in meeting your health care needs. Sincerely, Dr. Pinedo Interpreting Radiologist [facility] (Abnormal) [facility] DIAGNOSTIC RT Observed: 02/04/2018 Status: F Source: [place] 11:33 AM [facility] * * *Final Report* * * DATE OF EXAM: Feb 04 2018 11:33AM WRW [id number] - [facility] DIAGNOSTIC RT / PROCEDURE REASON: Abnormal mammogram * * * * Physician Interpretation * * * * RESULT: #[id number] - [facility] DIAGNOSTIC RT UNILATERAL RIGHT DIGITAL DIAGNOSTIC MAMMOGRAM WITH CAD: 02/04/2018 HISTORY: Abnormal Mammogram/call back right /priors available for comparison. RESULT: TECHNIQUE: The study was acquired using full field digital technology and interpreted from soft copy. Current study was also evaluated with a Computer Aided Detection (CAD). Comparison is made to exam dated: 01/28/2018 mammogram - [facility]. The tissue of right breast is heterogeneously dense. This may lower the sensitivity of mammography. There are a grouped pleomorphic calcifications in the right breast at 12 o'clock middle depth. No other significant masses or calcifications are seen in the breast. IMPRESSION: SUSPICIOUS FINDING - BIOPSY SHOULD BE CONSIDERED The grouped pleomorphic calcifications in the right breast are suspicious of malignancy. A stereotactic biopsy is recommended. Rosanna boswell/orion:02/04/2018 11:41:27 Waste Machine Offbearer(s): RT Shashank(R)(M), [facility] letter sent: Abnormal Mammogram BI-RADS: 4 Suspicious finding - Biopsy should be considered Multiple national specialty organizations have released breast cancer screening guidelines for women at average risk for developing breast cancer - guidelines that are based on both evidence and opinion, yet differ on when to start and how often to screen for breast cancer. With representation from Breast Imaging, Internal Medicine, Women's Health, Family Medicine, and Medical/Surgical Oncology, the [facility] has carefully reviewed the data and reached the following consensus: 1) All women should engage in shared decision-making with their providers to decide when to start and how often to screen; 2) All women should have the opportunity to start screening mammography at age 40; 3) For women ages 45-55, we recommend annual screening mammograms; 4) For women ages 55 and over, we support both the transition from an annual to a biennial interval if this aligns more with patient's values and preferences, or continuation with annual screening; 5) All women should discuss with their providers when to stop screening mammograms. Shredder Tender: Orion Transcribe Date/Time: Feb 04 2018 11:33A Dictated by: ROSANNA PINEDO MD This examination was interpreted and the report reviewed and electronically signed by: ROSANNA PINEDO MD on Feb 04 2018 11:41AM EST [id number] Observed: 02/04/2018 Status: COMPLETED Source: [place] 11:18 AM [facility] HNO ID: [id number] Author: Sophy Swanson Service: (none) Author Type: (none) Type: Progress Notes Filed: 02/04/2018 11:48 AM Note Text: Radiology Service Progress Note PATIENT NAME: Bhakti Mccloud DATE OF SERVICE: February 04, 2018 TIME: 11:18 AM PATIENT IDENTITY VERIFICATION COMPLETED USING TWO (2) METHODS: Patient confirmed name verbally and Date of . PATIENT GENDER DATA: Female. status: : No status: NO. PATIENT RELEVANT IMPLANT DATA REVIEWED: Not Applicable RADIOLOGY DEPARTMENT: Women's [facility] right diag mammogram PERIPHERAL IV DATA: Not applicable SIGNED BY: Sophy Swanson February 04, 2018 11:18 AM CNCO Observed: 01/28/2018 Status: COMPLETED Source: [place] 3:09 PM [facility] HNO ID: [id number] Author: Mammography Coordinator Service: (none) Author Type: Physician Type: Letter Filed: 01/29/2018 11:32 PM Note Text: January 28, 2018 PID: [id number] Bhakti Zimmerman Mccloud [address] [place] [id number] Dear Ms. Mccloud, Your recent breast imaging exam on 01/28/2018 showed a possible finding that requires additional imaging studies for a complete evaluation. Most such findings are probably benign (not cancer). Please call [phone] or EXT: [phone] to schedule an appointment for your additional imaging if you have not already done so. Your mammogram demonstrates that you have dense breast tissue, which could hide abnormalities. Dense breast tissue, in and of itself, is a relatively common condition. Therefore, this information is not provided to cause undue concern; rather, it is to raise your awareness and promote discussion with your health care provider regarding the presence of dense breast tissue in addition to other risk factors. Your breast images and report will be kept on file here as part of your permanent medical record and are available for your continuing care. Thank you for allowing us to help in meeting your health care needs. Sincerely, Dr. Rm Interpreting Radiologist [facility] (Additional imaging) CNOV Observed: 01/28/2018 Status: COMPLETED Source: [place] 2:00 PM [facility] Office Visit (WOOB) BHAKTI MCCLOUD ([id number]) 1945 F Date Time Provider Department 01/28/18 2:00 PM FREDRICK EDWARDS During your visit today, we recorded the following information about you: Blood pressure Weight Height 122/66 77.1 kg 1.702 m Fredrick Edwards MD 01/28/2018 2:19 PM Signed Bhaktiananth Mccloud is a 72 year old who presents for her annual gynecologic exam. Postmenopausal: hysterectomy HRT use: vaginal estrogen only Last Pap: hysterectomy Last mammogram: today History of abnormal mammogram: Yes Partial Left mastectomy 2005 breast cancer Obstetric History T1 L1 SAB0 TAB0 Ectopic0 Multiple0 Live Births0 PAST MEDICAL HISTORY Diagnosis Date - Breast cancer (HCC) 03/2006 Lobular type stage 2, left, partial mastectomy and radiation and Arimedex - Diverticulosis - Hypercholesteremia - Hypothyroidism - Osteopenia 02/2010 DEXA 2010 [place], DEXA 02/2013 - Vitamin D deficiency 02/2013 PAST SURGICAL HISTORY Procedure Laterality Date - COLONOSCOP W/ OR W/O [facility] SPEC 11/29/2016 Colonoscopy - COLONOSCOPY 2008 diverticulosis, no polyps, - PAST SURGICAL HISTORY OF Left Lumpectomy, patient states she had a partail mastectomy - TOTAL ABDOM HYSTERECTOMY Hysterectomy, [facility] H[facility] Problem Relation Age of Onset - Breast Cancer Mother - Heart Mother CHF secondary to systolic and diastolic dysfunction, age 80s - Cancer Father duodenal cancer - Prostate Cancer Father - Heart Maternal Grandfather - Cervical Cancer Sister - other (Other) Sister osteoporsis on Raloxifen SOCIAL HISTORY Social History Substance Use Topics - Smoking status: Former Smoker - Smokeless tobacco: Never Used - Alcohol use No REVIEW OF SYSTEMS Abdomen: No abdominal pain, nausea, vomiting, diarrhea, or constipation. No bloating, early satiety, indigestion, or increased flatulence. Bladder: No dysuria, gross hematuria, urinary frequency, urinary urgency, or incontinence other than stable JORDY Breast: No breast lumps, nipple d/c, overlying skin changes, redness or skin retraction Allergies and current medication updated:Yes EXAM: There were no vitals taken for this visit. GENERAL: pleasant, female in no apparent distress BREAST: soft, non-tender, no dominant mass, normal nipple- areolar complex, no lymphadenopathy and no nipple discharge CHEST: Normal inspiratory effort ABDOMEN: soft, non-tender and no masses PELVIC: external genitalia normal, no vulvar lesions, normal appearing perineal body and perianal region BIMANUAL: no adnexal masses, non-tender and uterus surgically absent RECTOVAGINAL: patient declined. NEURO: alert and oriented x3,exam grossly non-focal EXTREMITIES: normal ASSESSMENT/PLAN: 1) Health maintenance: Pap/HPV screening no longer needed Mammogram today Nutrition, exercise and routine health maintenance exams reviewed. Colon cancer screening: up to date with screening BMD: followed by PCP 2) Follow up one year or sooner as needed 3) Vaginal atrophy - continue estrace Fredrick Edwards MD Referring Provider: SELF [200] Allergies As of Date: 01/28/2018 (No Known Allergies) Date Reviewed: 01/28/2018 Reviewed by: Fredrick Edwards - Fully Assessed Reason for Visit: Yearly Exam [187] Primary Visit Diagnosis:Encounter for gynecological examination without abnormal finding [Z01.419] Other Visit Diagnoses:Encounter for screening mammogram for malignant neoplasm of breast [Z12.31] Dense breast tissue on mammogram [R92.2] Atrophic vaginitis [N95.2] Order(s):FRANCY SCREENING W ZION [[id number]] Order #: [id number] FUTURE estradiol (ESTRACE) 0.01 % (0.1 mg/gram) vaginal creamUse small amount at vaginal opening 2 nights per weekDisp: 1 TubeRfl: 2 Prescriptions as of 01/28/2018 Sig: CETIRIZINE 10 MG TABLET Take 1 tablet by mouth once d* CHOLECALCIFEROL (VITAMIN D3) * Take 1 capsule by mouth once * ESTRADIOL 0.01% (0.1 MG/GRAM)* Use small amount at vaginal o* FLUTICASONE 50 MCG/ACTUATION * Use 2 Sprays in each nostril * LEVOTHYROXINE 125 MCG TABLET Take 1 tablet by mouth daily * ACETAMINOPHEN 325 MG TABLET Take 650 mg by mouth every 6 * Problem List As Of Date 01/28/2018 Noted Resolved Hypothyroid [E03.9] INVALID FOR* History of breast cancer [Z85.3] INVALID FOR* Osteopenia [M85.80] INVALID FOR* Allergic rhinitis [J30.9] INVALID FOR* Overweight (BMI 25.0-29.9) [E66.3] INVALID FOR* Hyperlipidemia [E78.5] INVALID FOR* Vitamin D deficiency [E55.9] INVALID FOR* Prescriptions ordered this encounter Disp Refills Start End ESTRADIOL 0.01% (0.1 MG/GRAM) VAGINA* 1 Tu* 2 01/28/2018 Sig: Use small amount at vaginal opening 2 nights per week Medications Discontinued During This Encounter estradiol (ESTRACE) 0.01 % (0.1 mg/g* 1 Tu* 2 01/25/2017 01/28/2018 Sig: Use small amount at vaginal opening 2 nights per week Disc: Reason for discontinue is not on file. Disposition: Return in about 1 year (around 01/28/2019) for Routine CIVIL RIGHTS REPRESENTATIVE exam. Follow-up and Disposition History Recorded Encounter Status:Closed by FREDRICK EDWARDS MD on 01/28/18 PROGRESS Observed: 01/28/2018 Status: COMPLETED Source: [place] 1:20 PM [facility] HNO ID: [id number] Author: Fredrick Edwards Service: (none) Author Type: Physician Type: Progress Notes Filed: 01/28/2018 2:19 PM Note Text: Bhakti Mccloud is a 72 year old who presents for her annual gynecologic exam. Postmenopausal: hysterectomy HRT use: vaginal estrogen only Last Pap: hysterectomy Last mammogram: today History of abnormal mammogram: Yes Partial Left mastectomy 2006 breast cancer Obstetric History T1 L1 SAB0 TAB0 Ectopic0 Multiple0 Live Births0 PAST MEDICAL HISTORY Diagnosis Date - Breast cancer (HCC) 03/2006 Lobular type stage 2, left, partial mastectomy and radiation and Arimedex - Diverticulosis - Hypercholesteremia - Hypothyroidism - Osteopenia 02/2010 DEXA 2010 [place], DEXA 02/2013 - Vitamin D deficiency 02/2013 PAST SURGICAL HISTORY Procedure Laterality Date - COLONOSCOP W/ OR W/O [facility] SPEC 11/29/2016 Colonoscopy - COLONOSCOPY 2008 diverticulosis, no polyps, - PAST SURGICAL HISTORY OF Left Lumpectomy, patient states she had a partail mastectomy - TOTAL ABDOM HYSTERECTOMY Hysterectomy, [facility] H[facility] Problem Relation Age of Onset - Breast Cancer Mother - Heart Mother CHF secondary to systolic and diastolic dysfunction, age 80s - Cancer Father duodenal cancer - Prostate Cancer Father - Heart Maternal Grandfather - Cervical Cancer Sister - other (Other) Sister osteoporsis on Raloxifen SOCIAL HISTORY Social History Substance Use Topics - Smoking status: Former Smoker - Smokeless tobacco: Never Used - Alcohol use No REVIEW OF SYSTEMS Abdomen: No abdominal pain, nausea, vomiting, diarrhea, or constipation. No bloating, early satiety, indigestion, or increased flatulence. Bladder: No dysuria, gross hematuria, urinary frequency, urinary urgency, or incontinence other than stable JORDY Breast: No breast lumps, nipple d/c, overlying skin changes, redness or skin retraction Allergies and current medication updated:Yes EXAM: There were no vitals taken for this visit. GENERAL: pleasant, female in no apparent distress BREAST: soft, non-tender, no dominant mass, normal nipple- areolar complex, no lymphadenopathy and no nipple discharge CHEST: Normal inspiratory effort ABDOMEN: soft, non-tender and no masses PELVIC: external genitalia normal, no vulvar lesions, normal appearing perineal body and perianal region BIMANUAL: no adnexal masses, non-tender and uterus surgically absent RECTOVAGINAL: patient declined. NEURO: alert and oriented x3,exam grossly non-focal EXTREMITIES: normal ASSESSMENT/PLAN: 1) Health maintenance: Pap/HPV screening no longer needed Mammogram today Nutrition, exercise and routine health maintenance exams reviewed. Colon cancer screening: up to date with screening BMD: followed by PCP 2) Follow up one year or sooner as needed 3) Vaginal atrophy - continue estrace Fredrick Edwards MD [facility] SCREENING Observed: 01/28/2018 Status: F Source: [place] 1:10 PM [facility] * * *Final Report* * * DATE OF EXAM: Jan 28 2018 1:10PM [facility] 0581 - [facility] SCREENING / PROCEDURE REASON: Encounter for screening mammogram for malignant neoplasm of breast * * * * Physician Interpretation * * * * RESULT: #[id number] - [facility] SCREENING BILATERAL DIGITAL SCREENING MAMMOGRAM WITH CAD: 01/28/2018 HISTORY: Encounter For Screening Mammogram For Malignant Neoplasm Of Breast /Screening Mammogram - patient reports NO breast symptoms /Priors available for comparison. RESULT: TECHNIQUE: The study was acquired using full field digital technology and interpreted from soft copy. Current study was also evaluated with a Computer Aided Detection (CAD). Comparison is made to exams dated: 11/28/2016 mammogram, 11/28/2015 mammogram, and 11/25/2014 mammogram - [facility]. The tissue of both breasts is heterogeneously dense. This may lower the sensitivity of mammography. Both breasts have post-operative findings. There are multiple calcifications in the right breast upper inner aspect middle depth. No other significant masses, calcifications, or other findings are seen in either breast. IMPRESSION: INCOMPLETE: NEEDS ADDITIONAL IMAGING EVALUATION The multiple calcifications in the right breast are indeterminate. Additional views are recommended. Lydia Rm M.D. pt/penrad:01/28/2018 15:09:46 Waste Machine Offbearer(s): RT Loli(Murali)(M), [facility] letter sent: Additional Imaging Needed Mammogram BI-RADS: 0 Incomplete: needs additional imaging evaluation If this report indicates you need additional imaging, and it has NOT yet been performed, please call , to schedule. We sincerely thank you for choosing the [facility] for your breast imaging needs. Multiple national specialty organizations have released breast cancer screening guidelines for women at average risk for developing breast cancer - guidelines that are based on both evidence and opinion, yet differ on when to start and how often to screen for breast cancer. With representation from Breast Imaging, Internal Medicine, Women's Health, Family Medicine, and Medical/Surgical Oncology, the [facility] has carefully reviewed the data and reached the following consensus: 1) All women should engage in shared decision-making with their providers to decide when to start and how often to screen; 2) All women should have the opportunity to start screening mammography at age 40; 3) For women ages 45-55, we recommend annual screening mammograms; 4) For women ages 55 and over, we support both the transition from an annual to a biennial interval if this aligns more with patient's values and preferences, or continuation with annual screening; 5) All women should discuss with their providers when to stop screening mammograms. Shredder Tender: Orion Transcribe Date/Time: Jan 28 2018 12:52P Dictated by: LYDIA RM MD This examination was interpreted and the report reviewed and electronically signed by: LYDIA RM MD on Jan 28 2018 3:09PM EST [id number] Observed: 01/21/2018 Status: COMPLETED Source: [place] 2:44 PM [facility] [place] REPOS[facility] HNO ID: [id number] Author: [facility] Service: (none) Author Type: Physician Type: Progress Notes Filed: 01/21/2018 2:46 PM Note Text: CC: Bhakti Mccloud is a 72 year old female who presents to the office for physical HPI: Allergies, seasonal, improved with prn use of Flonase and Zyrtec, tolerated well, asking for refills Hypothyroidism, taking levoxyl 100 mcg daily, has been in the past getting her rx from [facility], she is needing new rx locally TSH Date Value Ref Range Status 01/01/2018 2.830 0.400 - 5.500 uU/mL Final Some fatigue and weight gain symptoms Vitamin d deficiency, taking 50,000 IU vitamin D3 weekly, level 53 Glucose (mg/dL) Date Value 01/01/2018 77 Potassium (mmol/L) Date Value 01/01/2018 4.2 Sodium (mmol/L) Date Value 01/01/2018 143 Chloride (mmol/L) Date Value 01/01/2018 105 CO2 (mmol/L) Date Value 01/01/2018 24 Creatinine (mg/dL) Date Value 01/01/2018 0.80 BUN (mg/dL) Date Value 01/01/2018 12 Anion Gap (mmol/L) Date Value 01/01/2018 14 Calcium (mg/dL) Date Value 01/01/2018 9.2 Protein, Total (g/dL) Date Value 01/01/2018 7.3 Albumin (g/dL) Date Value 01/01/2018 4.0 Bilirubin, Total (mg/dL) Date Value 01/01/2018 0.7 Alkaline Phosphatase (U/L) Date Value 01/01/2018 97 AST (U/L) Date Value 01/01/2018 26 ALT (U/L) Date Value 01/01/2018 23 Hemoglobin (g/dL) Date Value 01/01/2018 14.4 Hematocrit (%) Date Value 01/01/2018 45.6 WBC (k/uL) Date Value 01/01/2018 5.76 PAST MEDICAL HISTORY Diagnosis Date - Breast cancer (HCC) 03/2006 Lobular type stage 2, left, partial mastectomy and radiation and Arimedex - Diverticulosis - Hypercholesteremia - Hypothyroidism - Osteopenia 02/2010 [facility] 02/2013 - Vitamin D deficiency 02/2013 PAST SURGICAL HISTORY Procedure Laterality Date - COLONOSCOP W/ OR W/O [facility] SPEC 11/29/2016 Colonoscopy - COLONOSCOPY 2008 diverticulosis, no polyps, - PAST SURGICAL HISTORY OF Left Lumpectomy, patient states she had a partail mastectomy - TOTAL ABDOM HYSTERECTOMY Hysterectomy, [facility] Social History: Social History Substance Use Topics - Smoking status: Former Smoker - Smokeless tobacco: Never Used - Alcohol use No FAMILY HISTORY Problem Relation Age of Onset - Breast Cancer Mother - Heart Mother CHF secondary to systolic and diastolic dysfunction, age 80s - Cancer Father duodenal cancer - Prostate Cancer Father - Heart Maternal Grandfather - Cervical Cancer Sister - other (Other) Sister osteoporsis on Raloxifen Current Outpatient prescriptions: cholecalciferol, Vitamin D3, (VITAMIN D3) 50,000 unit cap capsule Take 1 capsule by mouth once each week. estradiol (ESTRACE) 0.01 % (0.1 mg/gram) vaginal cream Use small amount at vaginal opening 2 nights per week fluticasone (FLONASE) 50 mcg/actuation nasal spray Use 2 Sprays in each nostril once daily. Rinse mouth after use. cetirizine (ZYRTEC) 10 mg tablet Take 1 tablet by mouth once daily. levothyroxine (LEVOXYL) 125 mcg tablet Take 1 tablet by mouth daily before breakfast. acetaminophen (TYLENOL) 325 mg tablet Take 650 mg by mouth every 6 hours as needed. Allergies: ALLERGIES No Known Allergies ROS: See HPI PE: 01/21/18 1314 BP: 120/82 Pulse: 60 Resp: 16 Temp: (!) 35.8 ?C (96.4 ?F) TempSrc: Right Tympanic Weight: 76.7 kg (169 lb) Height: 170.2 cm (5' 7) Gen: AANDO, NAD, non-toxic appearing, Pleasant, cooperative HEENT: NT/AC, PERRLA, EOMs intact b/l, nares clear and patent b/l, pharynx without erythema, exudate or lesions. Uvula midline. EACs without erythema or debris. TMs pearly lynch with intact landmarks b/l. Neck: supple, No cervical LAD, no thyromegaly, no carotid bruits CV: RRR, normal S1 and S2, no murmurs, no gallops, no rubs, Pulses 2+ and symmetric in UE and LE b/l Lungs: normal respiratory effort, CTA b/l, no wheezing or rhonchi or rales Abd: soft, NT, ND, +BS, no hepatosplenomegaly MS: FROM all 4 extremities Neuro: CN II-XII intact b/l, strength 5/5 b/l UE and LE, DTRs 2/4 UE and LE, sensation intact. Skin: warm, dry, intact, No rashes or lesions on exposed skin. Multiple scattered angiomas and seborrheic keratoses ASSESSMENT/PLAN: 1. Allergic rhinitis due to other allergic trigger, unspecified seasonality - ICD9: 477.8, ICD10: J30.89 (primary diagnosis) - rx as below - FLUTICASONE 50 MCG/ACTUATION NASAL SPRAY,SUSPENSION - CETIRIZINE 10 MG TABLET 2. Hypothyroidism, unspecified type - ICD9: 244.9, ICD10: E03.9 - Instructed patient on importance of taking on an empty stomach either first thing in the morning or at bedtime. - Increase Synthroid dose to 0.125 mg - LEVOTHYROXINE 125 MCG TABLET 3. Well adult exam - ICD9: V70.0, ICD10: Z00.00 - Encouraged monthly Breast Self Exam - Recommended calcium intake with supplements or by diet (goal of 7341-1124 mg/day - Follow up for annual exam in one year. - LIPID PANEL BASIC - HGB A1C - TSH BLD - T4 FREE/FREE THYROX [facility] DO To ER if develops chest pain, shortness of breath, or severe worsening of symptoms. Discussed risks, benefits, alternatives, and potential side effects of medications. Patient expressed understanding and agreed with the plan. [facility] DO [address] [place] [address] JUANCARLOSOV Observed: 01/21/2018 Status: COMPLETED Source: [place] 1:00 PM [facility] BHAKTI MCCLOUD ([id number]) 1945 F Date Time Provider Department 01/21/18 1:00 PM [facility] During your visit today, we recorded the following information about you: Temperature Pulse Respiration Blood pressure 96.4 degrees 60/minute 16/minute 120/82 Weight Height 76.7 kg 1.702 m [facility], 01/21/2018 1:49 PM Signed Fasting labs - cholesterol, Hba1c (3 month glucose average), thyroid recheck labs in mid Feb. Coded as a Well adult preventative visit [facility] DO 01/21/2018 2:46 PM Signed CC: Bhakti Mccloud is a 72 year old female who presents to the office for physical HPI: Allergies, seasonal, improved with prn use of Flonase and Zyrtec, tolerated well, asking for refills Hypothyroidism, taking levoxyl 100 mcg daily, has been in the past getting her rx from [facility], she is needing new rx locally TSH Date Value Ref Range Status 01/01/2018 2.830 0.400 - 5.500 uU/mL Final Some fatigue and weight gain symptoms Vitamin d deficiency, taking 50,000 IU vitamin D3 weekly, level 53 Glucose (mg/dL) Date Value 01/01/2018 77 Potassium (mmol/L) Date Value 01/01/2018 4.2 Sodium (mmol/L) Date Value 01/01/2018 143 Chloride (mmol/L) Date Value 01/01/2018 105 CO2 (mmol/L) Date Value 01/01/2018 24 Creatinine (mg/dL) Date Value 01/01/2018 0.80 BUN (mg/dL) Date Value 01/01/2018 12 Anion Gap (mmol/L) Date Value 01/01/2018 14 Calcium (mg/dL) Date Value 01/01/2018 9.2 Protein, Total (g/dL) Date Value 01/01/2018 7.3 Albumin (g/dL) Date Value 01/01/2018 4.0 Bilirubin, Total (mg/dL) Date Value 01/01/2018 0.7 Alkaline Phosphatase (U/L) Date Value 01/01/2018 97 AST (U/L) Date Value 01/01/2018 26 ALT (U/L) Date Value 01/01/2018 23 Hemoglobin (g/dL) Date Value 01/01/2018 14.4 Hematocrit (%) Date Value 01/01/2018 45.6 WBC (k/uL) Date Value 01/01/2018 5.76 PAST MEDICAL HISTORY Diagnosis Date - Breast cancer (HCC) 03/2006 Lobular type stage 2, left, partial mastectomy and radiation and Arimedex - Diverticulosis - Hypercholesteremia - Hypothyroidism - Osteopenia 02/2010 DEXA 2010 [place], DEXA 02/2013 - Vitamin D deficiency 02/2013 PAST SURGICAL HISTORY Procedure Laterality Date - COLONOSCOP W/ OR W/O [facility] SPEC 11/29/2016 Colonoscopy - COLONOSCOPY 2008 diverticulosis, no polyps, - PAST SURGICAL HISTORY OF Left Lumpectomy, patient states she had a partail mastectomy - TOTAL ABDOM HYSTERECTOMY Hysterectomy, [facility] Social History: Social History Substance Use Topics - Smoking status: Former Smoker - Smokeless tobacco: Never Used - Alcohol use No FAMILY HISTORY Problem Relation Age of Onset - Breast Cancer Mother - Heart Mother CHF secondary to systolic and diastolic dysfunction, age 80s - Cancer Father duodenal cancer - Prostate Cancer Father - Heart Maternal Grandfather - Cervical Cancer Sister - other (Other) Sister osteoporsis on Raloxifen Current Outpatient prescriptions: cholecalciferol, Vitamin D3, (VITAMIN D3) 50,000 unit cap capsule Take 1 capsule by mouth once each week. estradiol (ESTRACE) 0.01 % (0.1 mg/gram) vaginal cream Use small amount at vaginal opening 2 nights per week fluticasone (FLONASE) 50 mcg/actuation nasal spray Use 2 Sprays in each nostril once daily. Rinse mouth after use. cetirizine (ZYRTEC) 10 mg tablet Take 1 tablet by mouth once daily. levothyroxine (LEVOXYL) 125 mcg tablet Take 1 tablet by mouth daily before breakfast. acetaminophen (TYLENOL) 325 mg tablet Take 650 mg by mouth every 6 hours as needed. Allergies: ALLERGIES No Known Allergies ROS: See HPI PE: 01/21/18 1314 BP: 120/82 Pulse: 60 Resp: 16 Temp: (!) 35.8 ?C (96.4 ?F) TempSrc: Right Tympanic Weight: 76.7 kg (169 lb) Height: 170.2 cm (5' 7) Gen: AANDO, NAD, non-toxic appearing, Pleasant, cooperative HEENT: NT/AC, PERRLA, EOMs intact b/l, nares clear and patent b/l, pharynx without erythema, exudate or lesions. Uvula midline. EACs without erythema or debris. TMs pearly lynch with intact landmarks b/l. Neck: supple, No cervical LAD, no thyromegaly, no carotid bruits CV: RRR, normal S1 and S2, no murmurs, no gallops, no rubs, Pulses 2+ and symmetric in UE and LE b/l Lungs: normal respiratory effort, CTA b/l, no wheezing or rhonchi or rales Abd: soft, NT, ND, +BS, no hepatosplenomegaly MS: FROM all 4 extremities Neuro: CN II-XII intact b/l, strength 5/5 b/l UE and LE, DTRs 2/4 UE and LE, sensation intact. Skin: warm, dry, intact, No rashes or lesions on exposed skin. Multiple scattered angiomas and seborrheic keratoses ASSESSMENT/PLAN: 1. Allergic rhinitis due to other allergic trigger, unspecified seasonality - ICD9: 477.8, ICD10: J30.89 (primary diagnosis) - rx as below - FLUTICASONE 50 MCG/ACTUATION NASAL SPRAY,SUSPENSION - CETIRIZINE 10 MG TABLET 2. Hypothyroidism, unspecified type - ICD9: 244.9, ICD10: E03.9 - Instructed patient on importance of taking on an empty stomach either first thing in the morning or at bedtime. - Increase Synthroid dose to 0.125 mg - LEVOTHYROXINE 125 MCG TABLET 3. Well adult exam - ICD9: V70.0, ICD10: Z00.00 - Encouraged monthly Breast Self Exam - Recommended calcium intake with supplements or by diet (goal of 6385-8089 mg/day - Follow up for annual exam in one year. - LIPID PANEL BASIC - HGB A1C - TSH BLD - T4 FREE/FREE THYROX [facility] DO To ER if develops chest pain, shortness of breath, or severe worsening of symptoms. Discussed risks, benefits, alternatives, and potential side effects of medications. Patient expressed understanding and agreed with the plan. [facility] DO [address] [place] [address] Referring Provider: SELF [200] Allergies As of Date: 01/21/2018 (No Known Allergies) Date Reviewed: 01/21/2018 Reviewed by: Cassi Sawyer LPN - Fully Assessed Reason for Visit: Physical [83] Primary Visit Diagnosis:Well adult exam [Z00.00] Other Visit Diagnoses:Allergic rhinitis due to other allergic trigger, unspecified seasonality [J30.89] Hypothyroidism, unspecified type [E03.9] Order(s):fluticasone (FLONASE) 50 mcg/actuation nasal sprayUse 2 Sprays in each nostril once daily. Rinse mouth after use.Disp: 3 BottleRfl: 3 cetirizine (ZYRTEC) 10 mg tabletTake 1 tablet by mouth once daily.Disp: 90 tabletRfl: 3 levothyroxine (LEVOXYL) 125 mcg tabletTake 1 tablet by mouth daily before breakfast.Disp: 90 tabletRfl: 3 LIPID PANEL BASIC [SQLIPB] Order #: [id number] FUTURE HGB A1C [GKKQN5T] Order #: [id number] FUTURE TSH BLD [SQTSH] Order #: [id number] FUTURE T4 FREE/FREE THYROX [SQFT4] Order #: [id number] FUTURE Prescriptions as of 01/21/2018 Sig: CHOLECALCIFEROL (VITAMIN D3) * Take 1 capsule by mouth once * ESTRADIOL 0.01% (0.1 MG/GRAM)* Use small amount at vaginal o* FLUTICASONE 50 MCG/ACTUATION * Use 2 Sprays in each nostril * CETIRIZINE 10 MG TABLET Take 1 tablet by mouth once d* LEVOTHYROXINE 125 MCG TABLET Take 1 tablet by mouth daily * ACETAMINOPHEN 325 MG TABLET Take 650 mg by mouth every 6 * Problem List As Of Date 01/21/2018 Noted Resolved Hypothyroid [E03.9] INVALID FOR* History of breast cancer [Z85.3] INVALID FOR* Osteopenia [M85.80] INVALID FOR* Allergic rhinitis [J30.9] INVALID FOR* Overweight (BMI 25.0-29.9) [E66.3] INVALID FOR* Hyperlipidemia [E78.5] INVALID FOR* Vitamin D deficiency [E55.9] INVALID FOR* Other instructions from your clinician: Fasting labs - cholesterol, Hba1c (3 month glucose average), thyroid recheck labs in mid Feb. Coded as a Well adult preventative visit Prescriptions ordered this encounter Disp Refills Start End FLUTICASONE 50 MCG/ACTUATION NASAL S* 3 Adolfo* 3 01/21/2018 Route: EACH NOSTRIL Sig: Use 2 Sprays in each nostril once daily. Rinse mouth after use. CETIRIZINE 10 MG TABLET 90 t* 3 01/21/2018 Route: ORAL Sig: Take 1 tablet by mouth once daily. LEVOTHYROXINE 125 MCG TABLET 90 t* 3 01/21/2018 Route: ORAL Sig: Take 1 tablet by mouth daily before breakfast. Medications Discontinued During This Encounter LEVOXYL 100 mcg tablet 90 t* 3 05/23/2015 01/21/2018 Class: Print RX Route: ORAL Sig: Take 1 tablet by mouth once daily. Take on empty stomach. For Thyroid. Disc: Reason for discontinue is not on file. Encounter Status:Closed by [facility] DO on 01/21/18 BRITTANY Observed: 01/08/2018 Status: COMPLETED Source: [place] 12:00 AM [facility] Telephone ([facility]) BHAKTI MCCLOUD ([id number]) 1945 F Date Time Provider Department 01/08/18 FREDRICK EDWARDS During your visit today, we recorded the following information about you: Jess Jatinder Rt 01/08/2018 1:52 PM Signed May we have a screening mammogram order please? Missy Azalia CAMACHO 01/10/2018 11:57 AM Signed Could you please review and sign in KJ absence pt has this appt already scheduled. Missy Vieyra LPN Missy Azalia CAMACHO 01/10/2018 12:47 PM Signed Noted. Missy Azalia CAMACHO Allergies As of Date: 01/08/2018 (No Known Allergies) Date Reviewed: 01/25/2017 Reviewed by: Mei QuigleyField Irrigation WorkerBrendan Wynn - Fully Assessed Reason for Visit: Orders [681] Primary Visit Diagnosis:Encounter for screening mammogram for malignant neoplasm of breast [Z12.31] Order(s):[facility] SCREENING [[id number]] Order #: [id number] FUTURE Prescriptions as of 01/08/2018 Sig: CHOLECALCIFEROL (VITAMIN D3) * Take 1 capsule by mouth once * ESTRADIOL 0.01% (0.1 MG/GRAM)* Use small amount at vaginal o* LEVOXYL 100 MCG TABLET Take 1 tablet by mouth once d* ACETAMINOPHEN 325 MG TABLET Take 650 mg by mouth every 6 * Problem List As Of Date 01/08/2018 Noted Resolved Hypothyroid [E03.9] INVALID FOR* History of breast cancer [Z85.3] INVALID FOR* Osteopenia [M85.80] INVALID FOR* Allergic rhinitis [J30.9] INVALID FOR* Overweight (BMI 25.0-29.9) [E66.3] INVALID FOR* Hyperlipidemia [E78.5] INVALID FOR* Vitamin D deficiency [E55.9] INVALID FOR* Encounter Status:Closed by FOX ANTUNEZ on 01/10/18 AALIYAH Observed: 01/07/2018 Status: COMPLETED Source: [place] 12:00 AM [facility] Patient Outreach ([facility]) BHAKTI MCCLOUD ([id number]) 1945 F Date Time Provider Department 01/07/18 [facility] During your visit today, we recorded the following information about you: Allergies As of Date: 01/07/2018 (No Known Allergies) Date Reviewed: 01/25/2017 Reviewed by: Mei Wynn - Fully Assessed Visit Diagnosis:Medication management [Z79.899] Order(s):LIPID PANEL BASIC [SQLIPB] Order #: [id number] FUTURE Prescriptions as of 01/07/2018 Sig: ACETAMINOPHEN 325 MG TABLET Take 650 mg by mouth every 6 * CHOLECALCIFEROL (VITAMIN D3) * Take 1 capsule by mouth once * X ESTRADIOL 0.01% (0.1 MG/GRAM)* Use small amount at vaginal o* X LEVOXYL 100 MCG TABLET Take 1 tablet by mouth once d* Problem List As Of Date 01/07/2018 Noted Resolved Hypothyroid [E03.9] INVALID FOR* History of breast cancer [Z85.3] INVALID FOR* Osteopenia [M85.80] INVALID FOR* Allergic rhinitis [J30.9] INVALID FOR* Overweight (BMI 25.0-29.9) [E66.3] INVALID FOR* Hyperlipidemia [E78.5] INVALID FOR* Vitamin D deficiency [E55.9] INVALID FOR* Encounter Status:Closed by [employer], SellboxUSER on 02/07/18 CBC Collected: 01/01/2018 Status: F Source: [place] 7:42 AM [facility] TYPE CODE TESTS RESULT OUT OF REFERENCE UNITS RANGE LAB WBC 3.70-11.00 k/uL WBC 5.76 LAB RBC 3.90-5.20 m/uL RBC 4.73 LAB HGB 11.5-15.5 g/dL Hemoglobin 14.4 LAB HCT 36.0-46.0 % Hematocrit 45.6 LAB MCV 80.0-100.0 fL MCV 96.4 LAB MCH 26.0-34.0 pG MCH 30.4 LAB MCHC 30.5-36.0 g/dL MCHC 31.6 LAB RDWCV 11.5-15.0 % RDW-CV 12.7 LAB PLTCT 150-400 k/uL Platelet Count 285 LAB MPV 9.0-12.7 fL MPV 11.4 LAB ABSNUC <0.01 k/uL Absolute nRBC <0.01 Performed By: #### CBC, VITD, CMP, TSH #### [facility] [email or web address] [address] [place] [address] VITAMIN D 25 HYDROXY Collected: 01/01/2018 Status: F Source: [place] 7:42 [facility] REPOSITORY TYPE CODE TESTS RESULT OUT OF REFERENCE UNITS RANGE LAB VITD 31.0-80.0 ng/mL Vitamin D 25 54.0 Hydroxy Result Comment: Classification of 25 [place] Vitamin D status: Insufficiency/Moderate Deficiency: < or = 30 ng/mL Sufficiency/Optimal Levels: 31 to 80 ng/mL Toxicity: > 100 ng/mL Test performed by chemiluminescent immunoassay. Performed By: #### CBC, VITD, CMP, TSH #### [facility] [email or web address] [address] [place] [address] COMP METABOLIC PANEL Collected: 01/01/2018 Status: F Source: [place] 7:42 [facility] REPOSITORY TYPE CODE TESTS RESULT OUT OF REFERENCE UNITS RANGE LAB TP 6.3-8.0 g/dL Protein, Total 7.3 LAB ALB 3.9-4.9 g/dL Albumin 4.0 LAB CA 8.5-10.2 mg/dL Calcium, Total 9.2 LAB TBIL 0.2-1.3 mg/dL Bilirubin, Total 0.7 LAB ALKP 34-123 U/L Alkaline Phosphatase 97 LAB AST 13-35 U/L AST 26 LAB GLU 74-99 mg/dL Glucose 77 Result Comment: The [place] Diabetes Association (ADA) provides guidance for cutoff values for fasting glucose and random glucose. The ADA defines fasting as no caloric intake for at least 8 hours. Fas ting plasma glucose results between 100 to 125 mg/dL indicate increased risk for diabetes (prediabetes). Fasting plasma glucose results greater than or equal to 126 mg/dL meet the criteria for diagnosis of diabetes. In the absence of unequivocal hyperglycemia, results should be confirmed by repeat testing. In a patient with classic symptoms of hyperglycemia or hyperglycemic crisis, random plasma glucose results greater than or equal to 200 mg/dL meet the criteria for diagnosis of diabetes. Reference: Standards of Medical Care in Diabetes 2016, [place] Diabetes Association. Diabetes Care. 2016.39(Suppl 1). LAB BUN 7-21 mg/dL BUN 12 LAB CRET 0.58-0.96 mg/dL Creatinine 0.80 LAB NA 136-144 mmol/L Sodium 143 LAB K 3.7-5.1 mmol/L Potassium 4.2 LAB CL 97-105 mmol/L Chloride 105 LAB CO2 22-30 mmol/L CO2 24 LAB AGAP 9-18 mmol/L Anion Gap 14 LAB ALT 7-38 U/L ALT 23 LAB GFRAA eGFR- Amer. >60 LAB GFRNAA . eGFR-All Other Races >60 Result Comment: eGFR (Estimated GFR) Units of measure: mL/min/1.73 meters squared eGFR is derived from the reexpressed MDRD Study equation using the following parameters: serum creatinine, age, gender and race. The creatinine assay has been calibrated to be traceable to IDMS. An eGFR <60 mL/min/1.73m2 for >3 months is consistent with chronic kidney disease. Refer to KDOQI guidelines for clinical interpretation. In patients with unstable renal function, e.g. those with acute kidney injury, the eGFR may not accurately reflect actual GFR. Performed By: #### CBC, VITD, CMP, TSH #### [facility] [email or web address] [address] [place], [place] [id number] TSH Collected: 01/01/2018 Status: F Source: [place] 7:42 AM [facility] [place] REPOSITORY TYPE CODE TESTS RESULT OUT OF RANGE REFERENCE UNITS LAB TSH 0.400-5.500 uU/mL TSH 2.830 Performed By: #### CBC, VITD, CMP, TSH #### [facility] [email or web address] [address] [place], [place] [address] ALLERGIES ALLERGIES DATE TYPE / CODE NAME / CODE REACTION SEVERITY SOURCE Drug NO KNOWN [facility] Class/62714 ALLERGIES [place] 1003(SNOMED Repository CT) ENCOUNTERS ENCOUNTERS ADMIT/DISCHARGE ACCOUNT ADMITTING ENCOUNTER LOCATION SOURCE NUMBER CLASS 03/13/2018/03/13/19 [id number] Ambulatory [address] Repository 03/08/2018/03/10/19 [id number] Ambulatory [place] [address] [facility] [place] Repository 03/06/2018 [id number] Ambulatory [facility] ing:LABSPEC Repository 03/04/2018 [id number] Ambulatory [facility] ing:BIRAD Repository 02/25/2018/02/26/19 [id number] Ambulatory [place] [facility] [place] Repository 02/04/2018/02/05/20 [id number] Ambulatory [place] [address] [facility] [place] Repository 01/28/2018/01/30/20 [id number] Ambulatory [place] [facility] [place] Repository 01/28/2018/01/29/20 [id number] Ambulatory [place] [facility] [place] Repository 01/21/2018/01/23/20 [id number] Ambulatory [place] [facility] Repository 01/01/2018/01/02/20 [id number] Ambulatory [place] [facility] Repository PAYERS PAYERS ENCOUNTER GUARANTOR PAYER SUBSCRIBER SOURCE 03/06/2018 BHAKTI G [id number] [facility] Insurance:CIGNAPolicy FLYNNDOB: [place], [place] Number: [id number] Hospital [address]Geg: 330 [id number] Repository [phone] () Date:[id number] [address]SB: 03/06/2018 Secondary NOT GIVENUNK [place] Insurance:SELF PAY [facility] Number: Effective Repository Date:2018-03-06 03/04/2018 BHAKTI Brunson [id number] [facility] Insurance:CIGNAPolicy FLYNNDOB: [place], [place] Number: [id number] Hospital [address]Ukn: (420) [id number] Repository [phone] () Date:[id number] [address]KH: 03/04/2018 Secondary NOT GIVENUNK [place] Insurance:SELF PAY [facility] Number: Effective Repository Date:2018-02-25
== END ==
PROVIDERS: Family Provider Student in an Organized Health Care Education/Training Program; PCP Student in an Organized Health Care Education/Training Program; Referring Provider Otolaryngology; Visit Provider Otolaryngology
DX: J02.9 Acute pharyngitis, unspecified (principal)
CPT/HCPCS: 87070

== ENCOUNTER 2018-04-09 08:12 | Day surgery (SDC) | payer OTHER, SELFPAY ==
[2018-04-09] VITALS (7 sets, daily range): BP systolic 111–131; BP diastolic 52–90; PULSE 60–84; RESP 14–18; TEMP 36.5–37.6; O2SAT 97–100; BMI 26.9
--- NOTE | 2018-04-09 | BREAST_PTH ---
PATIENT: JLUIS MCCLOUD LOC: [facility] [place] U#:[id number] AGE/SX: 72/F ROOM: RE04/09/[address]: Dr. Jose Pierce MD : 1945 BED: DIS: 04/09/2018 SPEC #: [id number] RECD: 04/09/18 13:25 STATUS: DA RERiver #: [id number] MEG: 04/09/18 00:[address]: Jose Pierce DEPT: SURGICAL PATHOLOGY RECD BY: Chichi Rodriguez ENTERED: 04/09/18 13:49 SP TYPE: BREAST OTHR DR: Dr. Mk Becerril, Tissues: Right breast, NOS Procedures: Frozen Section (charge) Surgery Specimen Level V HEADER OPERATION: Right breast lumpectomy, NL PRE-OP DIAGNOSIS: Lobular carcinoma and ductal carcinoma right breast TISSUE SUBMITTED: Right breast mass FROZEN SECTION DIAGNOSIS Right breast mass, lumpectomy: No gross lesion suspicious for malignancy. AM:clifton 04/09/18 MICROSCOPIC DIAGNOSIS Right breast mass, lumpectomy: Lobular carcinoma in situ. Atypical lobular hyperplasia. Focal intraductal hyperplasia without atypia. Negative for invasive carcinoma. See comment. SJ:clifton 04/15/18 COMMENT Immunohistochemistry ([id number]) supports the above diagnosis. The lobular carcinoma in situ in multiple areas is intermixed with atypical lobular hyperplasia (measures 1 cm in greatest dimension). The lobular carcinoma in situ is 0.3 cm away from the closest inferior margin. Please make reference to previous specimen ([id number]) right breast, microcalcifications, 12 o'clock middle depth, stereotactic core biopsy with diagnosis of lobular carcinoma in situ, focal ductal carcinoma in situ, atypical lobular hyperplasia. MICROSCOPIC DESCRIPTION Slides are reviewed. GROSS DESCRIPTION Received fresh for OR consultation labeled with the patient's name is a specimen designated right breast mass. The specimen consists of an oriented fragment of yellow fatty tissue measuring 6 x 5 x 1.6 cm and containing a metallic wire. The specimen is differentially inked as follows: superior - yellow, inferior - blue, posterior - black, medial - red, lateral - orange and inferior - green. The specimen is serially sectioned in the presence of the surgeon. No mass lesion suspicious for malignancy is identified. An ellipse of unremarkable is present measuring 2.5 x 0.8 cm. The specimen is serially sectioned and totally submitted in 15 cassettes after overnight fixation. / AM:clifton 04/10/18 TC:0 CPT: 89582, 07722
--- NOTE | 2018-04-09 | IMM_PTH ---
PATIENT: JLUIS MCCLOUD LOC: [facility] [place] U#:[id number] AGE/SX: 72/F ROOM: RE04/09/[address]: Dr. Jose Pierce MD : 1945 BED: DIS: 04/09/2018 SPEC #: [id number] RECD: 04/14/18 13:14 STATUS: DA RERiver #: [id number] MEG: 04/09/18 00:[address]: Jose Pierce DEPT: IMMUNOHISTOCHEMISTRY RECD BY: Chichi Rodriguez ENTERED: 04/14/18 13:15 SP TYPE: IMMUNO OTHR DR: Dr. Mk Becerril DO Tissues: Right breast, NOS Procedures: E-CAD (initial) CALPONIN-1 (add) CK7 (add) CK8 (add) E-CAD (add) P40 (add) PHYSICIAN & INSTITUTION [place] [address] SPECIMEN INFORMATION: Tissue Source: Right breast mass Clinical Info: Lobular carcinoma and ductal carcinoma right breast Specimen Number: [id number] #5, 6 & 8 CPT code: 66987, 68233 x14 METHODOLOGY: Deparaffinized sections of prefer/formalin-fixed tissue or PAP/DQ stained slides are incubated with monoclonal/polyclonal antibodies/oligonucleotide probes. Localization is made via biotin free immunoperoxidase method. Appropriate controls are performed and reacted as expected. Results on target cell population are indicated in the following table: RESULTS: ANTIBODY / CLONE RESULT Block 5 E-Cad (ECH-6) negative CK7 (OV-TL12/30) positive CK8 (63fdukM05) positive P40 (BC28) positive Calponin-1 (HY543R) positive Block 6 E-Cad (ECH-6) negative CK7 (OV-TL12/30) positive CK8 (35gmwwY19) positive P40 (BC28) positive Calponin-1 (BK399Y) positive Block 8 E-Cad (ECH-6) negative CK7 (OV-TL12/30) positive CK8 (31rhakE10) positive P40 (BC28) positive Calponin-1 (KJ156T) positive These tests were developed and their performance characteristics determined by [facility]. They may not have been cleared or approved by the U.S. Food and Drug Administration. The FDA has determined that such clearance or approval is not necessary. INTERPRETATION: Right breast mass, lumpectomy: Lobular carcinoma in situ. Atypical lobular hyperplasia. Negative for invasive carcinoma. SJ:clifton 04/15/18
--- NOTE | 2018-04-09 09:37 | BI_ITS ---
SURGICAL BREAST SPECIMEN RADIOGRAPH CLINICAL: Document presence of tissue clip marker in biopsy specimen. FINDINGS: Specimen shows presence of tissue clip marker. Electronically Signed: Jeff Montgomery MD at 13:42 EST , Service support , BI/Breast Biopsy Specimen
[2018-04-09] MEDS: Cefazolin 2 GM in 0.9% Normal Saline 100 ML IV (12:29)
[2018-04-09] MEDS: Bupivacaine Mpf 0.5% 30 ML VIAL (13:29)
--- NOTE | 2018-04-09 13:36 | PCM.OPRPT ---
Report of Operation Date of Procedure: 04/09/18 Pre-Operative Diagnosis: LCIS/DCIS Post-Operative Diagnosis: LCIS/DCIS - successfulneedle localizatgion excisional biopsy/lumpectomy Surgery/Procedure Performed:: right stereotactic needle localization lumpectomy stewarding supervisor: None Type of Anesthesia:: General Anesthesiologist: Star Lee - ASA2 Specimen's removed: right breast mass Drains: none Estimated Blood Loss (mL): 10 Fluids Replaced: 400 Description of Procedure: The patient was brought to the stereotactic suite. Her right breast was positioned in the cc approach in the [place] stereotactic table. Mammogram image demonstrated the clip to be nicely centered. Stereotactic images were obtained. Planned placement of the wire was marked and an additional 15 mm of depth added to the prescribed depth. The breast was then cleaned with Betadine. Local anesthetic was injected in the breast and a 14 Bard wire was inserted to the prescribed depth. Stereotactic images demonstrated good positioning of the wire. The wire was deployed as an needle was withdrawn. Stereotactic images demonstrated good positioning of the wire. The breast was marked compression the wire cut to length and taped. CC and MLO views were then obtained. The patient was then brought to the operative suite. Sign was performed verifying patient, site, position, SCIP antibiotic prophylaxis-2 g of Ancef and DVT prophylaxis with SCDs. Following an LMA anesthesia, Following this, the patient?s right breast, and neck were then prepped and draped in the usual fashion. Timeout was performed verifying patient, site, position. The wire entered the breast at the 12 oclock/CC position. An elliptical incision was made and dissection carried down to subcutaneous breast tissue and then flared out such that a good margin would be obtained in all axes. When the specimen was removed, The wire came from the superior superficial site. A solitary suture was placed at the medial aspect. A double tail suture was placed along the inferior/superficial aspect of the specimen. The specimen was oriented on a radiographic plate and sent for specimen radiograph. While we?re awaiting specimen radiograph, the cavity was irrigated with sterile water and aspirated. There was noted to be good hemostasis. 4 medium clips were placed at the deep cavity margins and 4 small clips at the superficial cavity margins oriented the cavity for future radiation treatment. Subcutaneous breast tissue closed with interrupted 3-0 Vicryl suture. Skin was closed with a running 4-0 Biosyn subcuticular suture. Specimen radiograph demonstrated good position of the clip relative to the biopsy site. The specimen was then brought to the pathology department. I oriented the specimen with the pathologist. No gross abnormalities were seen. Given this, Dermabond was applied to the skin the patient was awakened and brought to recovery in stable condition. - Admit VTE Documentation VTE Present on Admission: No VTE Mechan Device Prophylaxis: SCD's
--- NOTE | 2018-04-09 13:39 | DCINST_ITS ---
Discharge Diet: No Restrictions Discharge Activity: Return to Normal Activity May shower in (days): 3 Remove Dressing in (days):: 0 - Leave Dermabond in place. Allergies/Adverse Reactions: Allergies No Known Allergies Allergy (Verified 04/07/18 15:18) Medications to take at Discharge Cetirizine HCl [Zyrtec] 10 mg PO DAILY 04/07/18 Levothyroxine Sodium [Synthroid] 100 mcg PO QODAY 04/07/18 Levothyroxine Sodium [Synthroid] 150 mcg PO QODAY 04/07/18 Oxycodone [Oxyir] 5 mg PO Q6H PRN PRN 7 Days #8 tab 04/09/18 The following prescriptions were given: Oxycodone [Oxyir] 5 mg PO Q6H PRN PRN 7 Days #8 tab PRN Reason: Severe Pain (6-10/10) Primary Care Physician: Mk Becerril DO [Primary Care Provider] - Test Results: Test results from this visit will be discussed in further detail at your follow- up appointment, if applicable. Please Follow Up With: Jose Pierce MD - [phone] When: Please call for an appointment to be seen in one week.
[2018-04-09] MEDS: oxyCODONE 5 MG Tablet PO (15:40)
== END 2018-04-09 15:59 | disposition home or self-care (01) ==
LOC: SDC 08:14 → AC 08:15
PROVIDERS: Family Provider Student in an Organized Health Care Education/Training Program; PCP Student in an Organized Health Care Education/Training Program; Referring Provider Surgery; Visit Provider Surgery
PROC: (CPT 19301; principal; 2018-04-09 09:50)
DX: D05.01 Lobular carcinoma in situ of right breast (principal); D05.11 Intraductal carcinoma in situ of right breast; N60.91 Unspecified benign mammary dysplasia of right breast; E03.9 Hypothyroidism, unspecified; E55.9 Vitamin D deficiency, unspecified; Z87.891 Personal history of nicotine dependence; Z85.3 Personal history of malignant neoplasm of breast; Z79.899 Other long term (current) drug therapy
CPT/HCPCS: 19101; 19281; 76098; 88307; 88331; 88341; 88342; J7120; J2405